=== PATIENT | female | born 1960 | race Caucasian/White ===

== ENCOUNTER 2019-07-26 08:09 | Inpatient (IN) | payer OTHER ==
[~2019-07-26] VITALS: Ht 162.6 cm; Wt 89.8 kg
--- NOTE | 2019-07-26 08:11 | NUR ---
Patient BIBA BLS, transferred to bed 7. RN evaluating patient at bedside.
[2019-07-26 08:19] VITALS: BP 93/38
[2019-07-26] MEDS ORDERED: ACETAMINOPHEN EXTRA STRENGTH 500 MG TAB PO ONE (08:25)
--- NOTE | 2019-07-26 08:30 | NUR ---
FLU SWAB COLLECTED.
--- NOTE | 2019-07-26 08:32 | NUR ---
Dr. Stewart is evaluating the patient at bedside.
--- NOTE | 2019-07-26 08:40 | NUR ---
ATTEMPTING TO GET UA SAMPLE, PT WAS INCONTINENT. CLEANED AND PLACED ON BEDPAN TO COLLECT URINE SAMPLE.
--- NOTE | 2019-07-26 08:50 | NUR ---
LAB AT BEDSIDE TO COLLECT BLOOD
--- NOTE | 2019-07-26 08:57 | NUR ---
CXR AT BEDSIDE, TO READ
[2019-07-26 09:10] LABS: BASOPHILS # (AUTO) 0.1 K/uL (0.00-0.22); BASOPHILS % (AUTO) 2.1 % (0.0-2.0); EOSINOPHILS % (AUTO) 0.2 % (0.0-4.0); HEMATOCRIT 32.5 % (36-48); HEMOGLOBIN 11.4 g/dL (12.0-16.0); LYMPHOCYTES # (AUTO) 0.3 K/uL (2.5-16.5); LYMPHOCYTES % (AUTO) 6.6 % (20.5-51.1); MEAN CORPUSCULAR HEMOGLOBIN 34 pg (27-31); MEAN CORPUSCULAR HGB CONC 35 g/dL (33-37); MEAN CORPUSCULAR VOLUME 97.1 fL (80-94); MONOCYTES # (AUTO) 0.4 K/uL (0.8-1.0); MONOCYTES % (AUTO) 7.6 % (1.7-9.3); NEUTROPHILS # (AUTO) 4.2 K/uL (1.8-7.7); NEUTROPHILS % (AUTO) 83.5 % (42.2-75.2); PLATELET COUNT (AUTO) 202 K/uL (140-450); RED BLOOD CELL COUNT(AUTO) 3.35 MIL/uL (4.20-5.40); RED CELL DISTRIBUTION WIDTH 13.6 % (11.6-13.7)
--- NOTE | 2019-07-26 09:23 | NUR ---
PATIENT STATES SHE NEEDS TO HAVE BM, USING BEDPAN
--- NOTE | 2019-07-26 09:45 | NUR ---
PT UNABLE TO VOID ON BEDPAN. STRAIGHT CATH WITH #14F CATHETER, TOLERATE WELL. 200CC CLEAR YELLOW UOP OBTAINED. SENT URINE TO LAB FOR UA/C&S
[2019-07-26 09:52] LABS: POTASSIUM 4.1 mmol/L (3.5-5.1)
[2019-07-26 09:53] LABS: ALBUMIN 3.4 g/dL (3.4-5.0); ANION GAP 11.4 (8-16); CARBON DIOXIDE 23.7 mmol/L (21-32); CREATININE 0.7 mg/dL (0.6-1.3); TOTAL BILIRUBIN 0.5 mg/dL (0.0-1.0)
[2019-07-26 10:13] LABS: APPEARANCE,URINE CLEAR (CLEAR); BILIRUBIN,URINE NEGATIVE (NEGATIVE); BLOOD, URINE TRACE-L (NEGATIVE); COLOR,URINE YELLOW (YELLOW); LEUKOCYTE ESTERASE ,URINE NEGATIVE (NEGATIVE); NITRITE, URINE NEGATIVE (NEGATIVE); UGLUCOSE NEGATIVE (NEGATIVE)
[2019-07-26] MEDS ORDERED: NACL 3% 500 ML IV ONE (11:05)
[2019-07-26] MEDS ORDERED: NACL 0.9% 1,000 ML IV ONE ×2 (11:05→21:45)
[2019-07-26] MEDS ORDERED: ONDANSETRON 4 MG/2 ML VIAL IM/IVP PRN (12:00)
[2019-07-26] MEDS ORDERED: HYDROcodone/APAP 5/325 MG 1 TAB TAB PO PRN (12:00)
[2019-07-26] MEDS ORDERED: DOCUSATE SODIUM 100 MG GELCAP PO PRN (12:00)
[2019-07-26] MEDS ORDERED: MORPHINE SULFATE 2 MG/ML SYR IVP PRN (12:00)
--- NOTE | 2019-07-26 12:30 | NUR ---
CONFRIMED TELE STATUS WITH DR MAHER. RAMO TO ADMIT TO TELE.
[2019-07-26 12:40] LABS: MAGNESIUM 1.7 mg/dL (1.8-2.4); PHOSPHORUS 2.9 mg/dL (2.5-4.9); THYROID STIMULATING HORMONE 1.7 uIU/mL (0.34-3.74)
--- NOTE | 2019-07-26 12:45 | NUR ---
PATIENT TRANSFERED VIA GURNEY WITH CARD GRINDER. PT IN NO ACUTE DISTRESS. VVS, AWAKE AND ALERT REPORT GIVEN AT BEDSIDE TO RN FOR ROOM 124A, TELEMETRY
[2019-07-26] MEDS ORDERED: MAG SULF 2000 MG/WATER PREMIX 50 ML IV ONE (12:55)
[2019-07-26 12:59] LABS: PROTHROMBIN TIME 10.8 secs (10.8-13.4)
[2019-07-26] MEDS ORDERED: MAG SULF 2000 MG/WATER PREMIX 50 ML IV SCH (13:00)
[2019-07-26 13:10] VITALS: BP 96/52
--- NOTE | 2019-07-26 13:10 | NUR ---
RECEIVED PT FROM ER NURSE, VIA GURNEY, ACCOMPANIED BY CAREGIVER ON THE BEDSIDE, PT IS ALERT, AWAKE AND ORIENTED BUT WITH MENTAL DELAY, IV LINE ON THE RT HAND G. 22 WITH NS 3% INFUSING AT 45ML/HR, FALL PRECAUTION ENFORCED AND NO SIGN OF DISTRESS NOTED, WILL CONTINUE TO MONITOR PT.
--- NOTE | 2019-07-26 13:15 | NUR ---
VITAL SIGNS TAKEN TO PT NOW AND BP IS 96/52, PULSE IS 68, TEMP IS 98.6, RESPIRATION IS 18/MIN AND 02 SATURATION IS 98% ON ROOM AIR., WILL MONITOR PT.
[2019-07-26 13:37] LABS: ANION GAP 10.2 (8-16); CARBON DIOXIDE 24.8 mmol/L (21-32); CREATININE 0.8 mg/dL (0.6-1.3)
[2019-07-26] MEDS ORDERED: MECLIZINE 25 MG TAB PO PRN (13:45)
--- NOTE | 2019-07-26 14:00 | NUR ---
SKIN ASSESSMENT IS DONE TO PT AND SKIN IS INTACT, NO WOUND NOTED, WILL MONITOR PT.
--- NOTE | 2019-07-26 14:20 | NUR ---
MRSA SWAB DONE TO PT AND SAMPLE WAS WENT TO LAB.
--- NOTE | 2019-07-26 14:40 | NUR ---
PT IS OFF THE UNIT FOR A CT OF THE HEAD AND ABDOMEN AND PELVIS WITHOUT CONTRAST.
[2019-07-26] MEDS ORDERED: BUS5 PO (14:57)
[2019-07-26] MEDS ORDERED: DIVA250T PO (14:57)
[2019-07-26] MEDS ORDERED: MAGN1TAB PO (14:57)
[2019-07-26] MEDS ORDERED: PEP15L PO (14:57)
[2019-07-26] MEDS ORDERED: SIMV20TA1 PO (14:57)
[2019-07-26] MEDS ORDERED: ARIP15TA8 PO (14:57)
[2019-07-26] MEDS ORDERED: DIVA500T1 PO (14:57)
[2019-07-26] MEDS ORDERED: CHOL200074 PO (14:57)
[2019-07-26] MEDS ORDERED: SYN.05 PO (14:57)
[2019-07-26] MEDS ORDERED: IBUP200C97 PO (14:57)
[2019-07-26] MEDS ORDERED: OLAN2.5T1 PO (14:57)
[2019-07-26] MEDS ORDERED: FERR325E14 PO (14:57)
[2019-07-26] MEDS ORDERED: COG1 PO (14:57)
[2019-07-26] MEDS ORDERED: LORA-476 PO (14:57)
[2019-07-26] MEDS ORDERED: DOCU-299 PO (14:57)
[2019-07-26] MEDS ORDERED: FENO150C3 PO (14:57)
[2019-07-26] MEDS ORDERED: BACI-352 TP (14:57)
[2019-07-26] MEDS ORDERED: LORazepam 1 MG TAB PO PRN (15:00)
--- NOTE | 2019-07-26 15:00 | NUR ---
PT IS BACK TO ROOM NOW FROM RADIOLOGY.
[2019-07-26 16:00] VITALS: BP 101/54
[2019-07-26] MEDS ORDERED: FERROUS SULFATE 325 MG TABEC PO SCH (17:00)
[2019-07-26] MEDS: NACL 0.9% 1,000 ML IV SCH (17:22)
[2019-07-26] MEDS: SENNA 8.6 MG TAB PO SCH (17:22)
[2019-07-26 17:31] LABS: ANION GAP 8.8 (8-16); CARBON DIOXIDE 23.3 mmol/L (21-32); CREATININE 0.7 mg/dL (0.6-1.3); POTASSIUM 4.1 mmol/L (3.5-5.1)
--- NOTE | 2019-07-26 18:19 | NUR ---
PT WAS STARTED ON NS 3% AT 50ML/HR NOW.
[2019-07-26] MEDS ORDERED: NACL 3% 250 ML IV SCH (18:30)
--- NOTE | 2019-07-26 19:30 | NUR ---
ENDORSED PT. TO DRIVER SALESMAN NURSE ARNALDO FOR CONTINUITY OF CARE.
--- NOTE | 2019-07-26 19:30 | NUR ---
RECIEVED PT. MENTALLY DELAYED, BUT CAN FOLLOW SIMPLE COMMANDS , CAN ADDRESS WHAT SHE WANTS SUCH "I WANT TO EAT". NID - 02 SAT WNL - RA , W/ DIAPER FULLY SOAKED W/ URINE NOTED AT THIS TIME. IV SITE INTACT AND PATENT W/ ON GOING 3% NSS X 50 CC /HR - SERUM NA LEVEL - 118. ON ASSEMBLER FAUCETS - SR .POC DISCUSSED BUT LIMITED UNDERSTANDING DUE TO MENTAL STATUS . HAD BRAIN SURGERY YRS AGO , HAD FELL HX PRIOR TO ADMISSION .WILL CLOSELY WATCH.
[2019-07-26 20:00] VITALS: BP 99/46
--- NOTE | 2019-07-26 20:00 | NUR ---
LOW BP - BUT PT APPERS COMFORTABLY RESTING ON BED , CAN FOLLOW COMMAND , O2 SAT WNL , ON CARDIAC TRACING - SR - WILL RE CHECK BP . CLOSELY WATCH. Addendum: 07/27/19 at 0251 by Genia Chin RN FULL LIQ. DIET TOLERATED FED BY LOGAN .
--- NOTE | 2019-07-26 20:45 | NUR ---
REFER TO MERA - BP 99/46 SC 72 , STILL W/ ON GOING 3% NSS X 50 CC /HR - MERA SAID RE CHECK THE BP AFTER 30 MINS - THEN UPDATE THEM. -WILL CONT TO MONITOR.
[2019-07-26] MEDS ORDERED: BENZTROPINE 1 MG TAB PO SCH (21:00)
[2019-07-26] MEDS ORDERED: DIVALPROEX 500 MG TABER PO SCH (21:00)
[2019-07-26] MEDS ORDERED: busPIRone 5 MG TAB PO SCH (21:00)
[2019-07-26] MEDS ORDERED: metroNIDAZOLE 500 MG/NS PREMIX 100 ML IV SCH (21:00)
[2019-07-26 21:26] LABS: BARBITURATE, URINE NEG. ng/ml (NEG <=200); BENZODIAZEPINE, URINE NEG. ng/mL (NEG <=200); CANNABINOID, URINE NEG. ng/mL (NEG <=50); COCAINE, URINE NEG. ng/mL (NEG <=300); OPIATE, URINE NEG. ng/mL (NEG <=2000); PHENCYCLIDINE SCREEN,URINE NEG. ng/mL (NEG <=25)
--- NOTE | 2019-07-26 22:04 | NUR ---
NSS 1 L GIVEN BOLUS ORDERED - WILL CONT. TO MONITOR. THE 3% NSS ALREADY CONSUMED INFORMED MERA - FOR REPEAT SERUM NA LEVEL ORDERED. WILL CONT. TO MONITOR.
[2019-07-26] MEDS: OLANZapine 2.5 MG TAB PO SCH (22:18)
[2019-07-26] MEDS: SIMVASTATIN 20 MG TAB PO SCH (22:18)
[2019-07-26] MEDS: DIVALPROEX 250 MG TABEC PO SCH (22:19)
[2019-07-26] MEDS: OSELTAMIVIR PHOSPHATE 75 MG CAP PO SCH (22:19)
[2019-07-26] MEDS: DOCUSATE SODIUM 100 MG GELCAP PO SCH (22:20)
[2019-07-26] MEDS: LACTULOSE 20 GM/30 ML UDC PO SCH (22:20)
[2019-07-26] MEDS: ARIPiprazole 10 MG TAB PO SCH (22:21)
[2019-07-26] MEDS: busPIRone 5 MG TAB PO SCH (22:24)
[2019-07-26 23:22] LABS: ANION GAP 10.3 (8-16); CARBON DIOXIDE 22.5 mmol/L (21-32); CREATININE 0.9 mg/dL (0.6-1.3); POTASSIUM 3.8 mmol/L (3.5-5.1)
--- NOTE | 2019-07-26 23:30 | NUR ---
BP RECHECK 90/60 - WILL CONT. TO MONITOR - FULLY SOAKED DIAPER NOTED AT THIS TIME.ON HEEL SLICKER.
[2019-07-27] VITALS: BP 100/59
--- NOTE | 2019-07-27 | NUR ---
MADE ROUNDS THE IV BOLUS CONSUMED , THE PREVOUSLY NSS ON THE BEDSIDE RE HOOKED AND REGULATE TO 70 CC/HR PREVIOUSLY ORDERED - INFORM MERA .WILL CONT. TO MONITOR.
--- NOTE | 2019-07-27 01:30 | NUR ---
MADE ROUNDS , BP97/47 - PT . CAN FOLLOW COMMANDS, O2 SAT WNL , VA 69 , W/ ANOTHER FULLY SOAKED W/URINE DIAPER NOTED , REFER TO MERA , MADE NEW ORDER AND CARIED OUT . WILL CONT. TO MONITOR. - UPDATE CHARGE ABOUT THE CONDITION OF THE PT.
[2019-07-27] MEDS ORDERED: NACL 0.9% 1,000 ML IV ONE (02:00)
[2019-07-27] MEDS: NACL 0.9% 1,000 ML IV SCH (03:29)
--- NOTE | 2019-07-27 03:30 | NUR ---
BP RE CHECK 99/60 - MERA INFORM - WILL CONT TO MONITOR.
[2019-07-27 04:00] VITALS: BP 98/60
--- NOTE | 2019-07-27 06:00 | NUR ---
MADE ROUNDS , NO S/ S OF ACUTE DISTRESS NOTED AT THIS TIME - CHICKEN BROTH AND APPLE JUICE SERVED - FED - WELL TOLERATED.
[2019-07-27] MEDS: LEVOTHYROXINE 0.025 MG TAB PO SCH (06:06)
--- NOTE | 2019-07-27 07:24 | NUR ---
RECEIVED BEDSIDE REPORT FROM NIGHTSHIFT NURSE. PT RESTING IN BED. ABLE TO MAKE NEEDS KNOWN. RESPIRATIONS EVEN AND UNLABORED WITH NO SOB OR RESPIRATORY DISTRESS. SKIN WARM AND DRY TO TOUCH. SAFETY MEASURES IN PLACE. WILL CONTINUE TO MONITOR.
--- NOTE | 2019-07-27 07:24 | NUR ---
ENDORSED - PT - AWAKE - LATEST BP 100 / 60 - STABLE . O2 SAT WNL .
[2019-07-27 08:00] VITALS: BP 107/56
--- NOTE | 2019-07-27 08:14 | NUR ---
PATIENT HAS BEEN SCREENED AND CATEGORIZED MODERATE NUTRITION RISK. PATIENT WILL BE SEEN WITHIN 3-5 DAYS OF ADMISSION. 07/29/19 07/31/[address]
[2019-07-27 08:16] LABS: BASOPHILS % (AUTO) 0.4 % (0.0-2.0); EOSINOPHILS % (AUTO) 0.1 % (0.0-4.0); HEMATOCRIT 29.7 % (36-48); HEMOGLOBIN 10.7 g/dL (12.0-16.0); LYMPHOCYTES % (AUTO) 27.6 % (20.5-51.1); MEAN CORPUSCULAR HEMOGLOBIN 35 pg (27-31); MEAN CORPUSCULAR HGB CONC 36 g/dL (33-37); MEAN CORPUSCULAR VOLUME 96.1 fL (80-94); MONOCYTES # (AUTO) 0.4 K/uL (0.8-1.0); MONOCYTES % (AUTO) 11.5 % (1.7-9.3); NEUTROPHILS # (AUTO) 2.2 K/uL (1.8-7.7); NEUTROPHILS % (AUTO) 60.4 % (42.2-75.2); PLATELET COUNT (AUTO) 186 K/uL (140-450); RED BLOOD CELL COUNT(AUTO) 3.09 MIL/uL (4.20-5.40); RED CELL DISTRIBUTION WIDTH 13.6 % (11.6-13.7); WHITE BLOOD COUNT (AUTO) 3.7 K/uL (4.8-10.8)
[2019-07-27 08:33] LABS: ANION GAP 13.6 (8-16); CARBON DIOXIDE 21.1 mmol/L (21-32); CREATININE 0.9 mg/dL (0.6-1.3); POTASSIUM 3.7 mmol/L (3.5-5.1)
[2019-07-27 08:38] LABS: MAGNESIUM 2.1 mg/dL (1.8-2.4); PHOSPHORUS 2.5 mg/dL (2.5-4.9)
[2019-07-27] MEDS: ARIPiprazole 10 MG TAB PO SCH ×2 (08:50→21:03)
[2019-07-27] MEDS: VITAMIN D 400 IU TAB PO SCH (08:51)
[2019-07-27] MEDS: LACTULOSE 20 GM/30 ML UDC PO SCH ×2 (08:51→21:03)
--- NOTE | 2019-07-27 08:51 | NUR ---
ADMINISTERED SCHED MED PRESCRIBED PER MD ORDER. PT TOLERATED WELL. MEDICATION EDUCATION PERFORMED. PT VERBALIZED UNDERSTANDING. SAFETY MEASURES IN PLACE. WILL CONTINUE TO MONITOR.
[2019-07-27] MEDS: busPIRone 5 MG TAB PO SCH ×2 (08:52→21:03)
[2019-07-27] MEDS: DIVALPROEX 250 MG TABEC PO SCH ×2 (08:52→21:04)
[2019-07-27] MEDS: DOCUSATE SODIUM 100 MG GELCAP PO SCH ×2 (08:52→21:03)
[2019-07-27] MEDS: FENOFIBRATE 48 MG TAB PO SCH (08:53)
[2019-07-27] MEDS: OSELTAMIVIR PHOSPHATE 75 MG CAP PO SCH ×2 (08:54→21:03)
[2019-07-27] MEDS: SENNA 8.6 MG TAB PO SCH ×3 (08:54→17:40)
--- NOTE | 2019-07-27 08:57 | NUR ---
ADMINISTERED SCHED MED PRESCRIBED PER MD ORDER. PT TOLERATED WELL. MEDICATION EDUCATION PERFORMED. PT VERBALIZED UNDERSTANDING. SAFETY MEASURES IN PLACE. WILL CONTINUE TO MONITOR.
[2019-07-27 09:10] LABS: FOLIC ACID 9.3 ng/mL (>3.0)
--- NOTE | 2019-07-27 10:32 | NUR ---
PT RESTING IN BED. ABLE TO MAKE NEEDS KNOWN. RESPIRATIONS EVEN AND UNLABORED WITH NO SOB OR RESPIRATORY DISTRESS. SKIN WARM AND DRY TO TOUCH. SAFETY MEASURES IN PLACE. WILL CONTINUE TO MONITOR.
[2019-07-27 10:52] LABS: CHOL/HDL RATIO 2.5 (1-4.5)
[2019-07-27 12:00] VITALS: BP 109/73
--- NOTE | 2019-07-27 12:58 | NUR ---
ADMINISTERED SCHED MED PRESCRIBED PER MD ORDER. PT TOLERATED WELL. MEDICATION EDUCATION PERFORMED. PT VERBALIZED UNDERSTANDING. SAFETY MEASURES IN PLACE. WILL CONTINUE TO MONITOR.
[2019-07-27 13:48] LABS: ANION GAP 8.8 (8-16); CARBON DIOXIDE 25.4 mmol/L (21-32); CREATININE 0.8 mg/dL (0.6-1.3); POTASSIUM 3.2 mmol/L (3.5-5.1)
--- NOTE | 2019-07-27 14:04 | NUR ---
PT SLEEPING IN BED. RESPONSIVE TO VERBAL AND TACTILE STIMULI.ABLE TO MAKE NEEDS KNOWN. RESPIRATIONS EVEN AND UNLABORED WITH NO SOB OR RESPIRATORY DISTRESS. SKIN WARM AND DRY TO TOUCH. SAFETY MEASURES IN PLACE. WILL CONTINUE TO MONITOR.
[2019-07-27 16:00] VITALS: BP 102/56
--- NOTE | 2019-07-27 17:40 | NUR ---
ADMINISTERED SCHED MED PRESCRIBED PER MD ORDER. PT TOLERATED WELL. MEDICATION EDUCATION PERFORMED. PT VERBALIZED UNDERSTANDING. SAFETY MEASURES IN PLACE. WILL CONTINUE TO MONITOR.
[2019-07-27] MEDS ORDERED: ED NON STOCK ORDER 1 EA MISC PO ONE (18:05)
--- NOTE | 2019-07-27 18:40 | NUR ---
RECEIVED CALL FROM PHARMACY. WE DO NOT HAVE THE SAMSCA 15MG HERE. [facility] WILL BE SENDING OVER THE MEDICATION WITH A CARRIER WHO WILL GIVE THE MEDICATION TO THE BOILER TENDER AND THEY WILL GIVE IT TO THE NIGHTSHIFT NURSE. THE CARRIER IS COMING FROM [facility]. WILL ENDORSE TO NIGHTSILFT. SAFETY MEASURES IN PLACE
--- NOTE | 2019-07-27 19:25 | NUR ---
ENDORSED AT BEDSIDE TO NIGHTSHIFT NURSE. PT RESTING IN BED. ABLE TO MAKE NEEDS KNOWN. RESPIRATIONS EVEN AND UNLABORED WITH NO SOB OR RESPIRATORY DISTRESS. SKIN WARM AND DRY TO TOUCH. SAFETY MEASURES IN PLACE. PT IS STABLE
--- NOTE | 2019-07-27 19:26 | NUR ---
RECEIVED REPORT FROM AM NURSE. PATIENT LYING DOWN IN BED, AAOX3, CALM, COOPERATIVE, SKIN COLOR APPROPRIATE TO ETHNICITY, WARM TO TOUCH. SKIN INTACT. RESPIRATIONS EVEN, UNLABORED, ON ROOM AIR. IV SITE INTACT, PATENT, AND INFUSING IVF PER MD ORDERS. PER AM NURSE, PATIENT HAD A LARGE BM TODAY. REVIEWED PLAN OF CARE WITH PATIENT. PATIENT VERBALIZED UNDERSTANDING. SAFETY MEASURES IN PLACE, CALL LIGHT WITHIN REACH. WILL CONTINUE TO MONITOR.
[2019-07-27 20:00] VITALS: BP 122/64
[2019-07-27] MEDS ORDERED: SAMSCA 15 MG PO SCH (21:00)
[2019-07-27] MEDS: OLANZapine 2.5 MG TAB PO SCH (21:03)
[2019-07-27] MEDS: SIMVASTATIN 20 MG TAB PO SCH (21:11)
--- NOTE | 2019-07-27 21:14 | NUR ---
PATIENT SITTING DOWN IN BED. NO DISTRESS NOTED. SCHEDULED MEDICATIONS DUE GIVEN. WILL CONTINUE TO MONITOR.
[2019-07-27] MEDS ORDERED: KCL 20 MEQ/WATER INJ PREMIX 200 ML IV ONE (21:15)
[2019-07-28] VITALS: BP 115/66
[2019-07-28] MEDS: ACETAMINOPHEN 325 MG TAB PO PRN ×2 (01:48→14:53)
--- NOTE | 2019-07-28 01:48 | NUR ---
PATIENT HAS A FEVER 101, TYLENOL GIVEN AT THIS TIME. WILL CONTINUE TO MONITOR.
--- NOTE | 2019-07-28 03:00 | NUR ---
ASSISTED UTILITY PLANT OPERATIVE IN CLEANING AND REPOSITIONING PATIENT. WILL CONTINUE TO MONITOR.
[2019-07-28 04:00] VITALS: BP 116/61
[2019-07-28] MEDS: LEVOTHYROXINE 0.025 MG TAB PO SCH (06:04)
--- NOTE | 2019-07-28 06:10 | NUR ---
PATIENT LYING DOWN IN BED SLEEPING, AROUSBLE BY VOICE. SCHEDULED MEDICATIONS DUE GIVEN. WILL CONTINUE TO MONITOR.
[2019-07-28 06:59] LABS: BASOPHILS % (AUTO) 0.3 % (0.0-2.0); EOSINOPHILS % (AUTO) 0.2 % (0.0-4.0); HEMATOCRIT 32.7 % (36-48); HEMOGLOBIN 11.7 g/dL (12.0-16.0); LYMPHOCYTES # (AUTO) 1.4 K/uL (2.5-16.5); LYMPHOCYTES % (AUTO) 32.9 % (20.5-51.1); MEAN CORPUSCULAR HEMOGLOBIN 34 pg (27-31); MEAN CORPUSCULAR HGB CONC 36 g/dL (33-37); MONOCYTES # (AUTO) 0.4 K/uL (0.8-1.0); MONOCYTES % (AUTO) 8.7 % (1.7-9.3); NEUTROPHILS # (AUTO) 2.5 K/uL (1.8-7.7); NEUTROPHILS % (AUTO) 57.9 % (42.2-75.2); PLATELET COUNT (AUTO) 189 K/uL (140-450); RED BLOOD CELL COUNT(AUTO) 3.41 MIL/uL (4.20-5.40); RED CELL DISTRIBUTION WIDTH 13.6 % (11.6-13.7); WHITE BLOOD COUNT (AUTO) 4.4 K/uL (4.8-10.8)
--- NOTE | 2019-07-28 07:10 | NUR ---
RECEIVED PT FROM CHARGE MASTER SPECIALIST NURSENORMAN, PT IS AWAKE AND LYING ON THE BED WITH SIDE RAILS UP AND CALL LIGHT WITHIN REACH, IV LINE ON THE RT WRIST G. 24 WITH IVF NS INFUSING AT 5ML/HR, SAFETY AND FALL PRECAUTION ENFORCED, BED ALARM ACTIVATED, PT ON ROOM AIR, SCD IN PLACE, PT HAS MENTAL DELAY BUT ALERT,DENIES PAIN, ON CONTACT AND DROPLET ISOLATIONS, AND NO SIGN OF DISTRESS NOTED. WILL MONITOR PT
[2019-07-28 07:34] LABS: ANION GAP 11.4 (8-16); CARBON DIOXIDE 24.9 mmol/L (21-32); CREATININE 0.9 mg/dL (0.6-1.3); POTASSIUM 4.3 mmol/L (3.5-5.1)
[2019-07-28 07:58] LABS: MAGNESIUM 1.9 mg/dL (1.8-2.4)
[2019-07-28 08:00] VITALS: BP 100/58
[2019-07-28] MEDS ORDERED: KCL 20 MEQ/WATER INJ PREMIX 200 ML IV PRN (09:00)
[2019-07-28] MEDS: SENNA 8.6 MG TAB PO SCH ×3 (09:00→17:00)
[2019-07-28] MEDS: DOCUSATE SODIUM 100 MG GELCAP PO SCH ×2 (09:00→20:31)
[2019-07-28] MEDS: LACTULOSE 20 GM/30 ML UDC PO SCH ×2 (09:00→20:30)
[2019-07-28] MEDS: DIVALPROEX 250 MG TABEC PO SCH ×2 (09:42→20:31)
[2019-07-28] MEDS: VITAMIN D 400 IU TAB PO SCH (09:44)
[2019-07-28] MEDS: ARIPiprazole 10 MG TAB PO SCH ×2 (09:45→20:29)
[2019-07-28] MEDS: OSELTAMIVIR PHOSPHATE 75 MG CAP PO SCH ×2 (09:45→20:32)
--- NOTE | 2019-07-28 09:45 | NUR ---
PT WAS GIVEN THE SCHEDULED AM MEDICATIONS, PLATELET IS 189, ASPIRATION PRECAUTION INITIATED, TOLERATED MEDICATIONS, WILL MONITOR PT.
[2019-07-28] MEDS: busPIRone 5 MG TAB PO SCH ×2 (09:46→20:30)
[2019-07-28] MEDS: FENOFIBRATE 48 MG TAB PO SCH (09:47)
--- NOTE | 2019-07-28 09:50 | NUR ---
SCHEDULED STOOL SOFTENERS IN THE AM WAS HELD DUE TO PT'S BOWEL TO BE LIQUID, DR. MEZA WAS INFORMED.
--- NOTE | 2019-07-28 09:52 | NUR ---
DR. MEZA CAME TO PT'S ROOM AND IS TALKING AND ASSESSING THE PT NOW, PT RESPONDING APPROPRIATELY.
--- NOTE | 2019-07-28 11:45 | NUR ---
PT IS SLEEPING AND RESTING NOW, VISIBLE CHEST RISE AND NO SIGN OF DISTRESS NOTED. WILL MONITOR PT.
[2019-07-28 12:00] VITALS: BP 101/62
--- NOTE | 2019-07-28 13:00 | NUR ---
SCHEDULED SENNA WAS NOT GIVEN DUE TO LIQUID BOWEL OF PT, DR. MEZA WAS INFORMED.
[2019-07-28 13:36] LABS: ANION GAP 10.9 (8-16); CARBON DIOXIDE 27.8 mmol/L (21-32); CREATININE 0.9 mg/dL (0.6-1.3); POTASSIUM 3.7 mmol/L (3.5-5.1)
--- NOTE | 2019-07-28 14:53 | NUR ---
PT C/O HEADACHE AND WAS GIVEN TYLENOL AND PT TOLERATED IT. WILL RE-ASSESS HEADACHE AND MONITOR PT.
[2019-07-28 16:00] VITALS: BP 105/61
--- NOTE | 2019-07-28 17:00 | NUR ---
SENNA WAS NOT GIVEN BECAUSE PT'S BOWEL IS LIQUID.
--- NOTE | 2019-07-28 19:00 | NUR ---
RECEIVED BEDSIDE REPORT FROM DAY SHIFT NURSE. PATIENT IS AWAKE AND COOPERATIVE. RESPIRATION EVEN UNLABORED ON ROOM AIR. NO DISTRESS NOTED. SKIN IS WARM AND DRY. IV PATENT AND INTACT. PLAN OF CARE WAS DISCUSSED. ALL SAFETY MEASURES IN PLACE. BED IS AT LOW POSITION. CALL LIGHT WITHIN REACH. WILL CONTINUE TO MONITOR.
--- NOTE | 2019-07-28 19:35 | NUR ---
ENDORSED PT TO MANAGER STEEL NURSE, TERESA, FOR CONTINUITY OF CARE.
[2019-07-28 20:00] VITALS: BP 104/63
--- NOTE | 2019-07-28 20:00 | NUR ---
INITIAL ASSESSMENT DONE. VITALS WERE TAKEN. PATIENT IS IN STABLE CONDITION. WILL CONTINUE TO MONITOR.
--- NOTE | 2019-07-28 20:29 | NUR ---
ALL SCHEDULED MEDS WERE GIVEN PER ORDER. NO ASE NOTED. WILL CONTINUE TO MONITOR.
[2019-07-28] MEDS: SIMVASTATIN 20 MG TAB PO SCH (20:31)
[2019-07-28] MEDS: OLANZapine 2.5 MG TAB PO SCH (20:32)
--- NOTE | 2019-07-28 22:00 | NUR ---
PATIENT IS SLEEPING RESPIRATION EVEN UNLABORED ON ROOM AIR. NO DISTRESS NOTED. WILL CONTINUE TO MONITOR.
[2019-07-29] VITALS: BP 101/56
--- NOTE | 2019-07-29 00:10 | NUR ---
VITALS WERE TAKEN. PATIENT IS IN STABLE CONDITION. NO DISTRESS NOTED. WILL CONTINUE TO MONITOR.
--- NOTE | 2019-07-29 00:30 | NUR ---
DR. IRBY AT BEDSIDE
--- NOTE | 2019-07-29 01:42 | NUR ---
VITALS WERE TAKEN. PATIENT IS IN STABLE CONDITION. NO DISTRESS NOTED. WILL CONTINUE TO MONITOR.
[2019-07-29 04:00] VITALS: BP 107/68
--- NOTE | 2019-07-29 04:10 | NUR ---
VITALS WERE TAKEN. PATIENT IS IN STABLE CONDITION. NO DISTRESS NOTED. WILL CONTINUE TO MONITOR.
[2019-07-29] MEDS: LEVOTHYROXINE 0.025 MG TAB PO SCH (06:21)
[2019-07-29 06:59] LABS: BASOPHILS % (AUTO) 0.5 % (0.0-2.0); EOSINOPHILS # (AUTO) 0.1 K/uL (0-0.4); EOSINOPHILS % (AUTO) 1.1 % (0.0-4.0); HEMATOCRIT 33.5 % (36-48); HEMOGLOBIN 11.9 g/dL (12.0-16.0); LYMPHOCYTES # (AUTO) 1.5 K/uL (2.5-16.5); LYMPHOCYTES % (AUTO) 26.7 % (20.5-51.1); MEAN CORPUSCULAR HEMOGLOBIN 34 pg (27-31); MEAN CORPUSCULAR HGB CONC 36 g/dL (33-37); MEAN CORPUSCULAR VOLUME 96.5 fL (80-94); MONOCYTES # (AUTO) 0.5 K/uL (0.8-1.0); NEUTROPHILS # (AUTO) 3.7 K/uL (1.8-7.7); NEUTROPHILS % (AUTO) 63.7 % (42.2-75.2); PLATELET COUNT (AUTO) 211 K/uL (140-450); RED BLOOD CELL COUNT(AUTO) 3.47 MIL/uL (4.20-5.40); RED CELL DISTRIBUTION WIDTH 13.4 % (11.6-13.7); WHITE BLOOD COUNT (AUTO) 5.8 K/uL (4.8-10.8)
[2019-07-29 07:06] LABS: ANION GAP 10.6 (8-16); CARBON DIOXIDE 29.3 mmol/L (21-32); CREATININE 0.8 mg/dL (0.6-1.3); POTASSIUM 3.9 mmol/L (3.5-5.1)
[2019-07-29 07:11] LABS: MAGNESIUM 1.8 mg/dL (1.8-2.4); PHOSPHORUS 2.7 mg/dL (2.5-4.9)
--- NOTE | 2019-07-29 07:15 | NUR ---
ENDORSED PATIENT TO DAY SHIFT NURSE. PATIENT IS IN STABLE CONDITION
--- NOTE | 2019-07-29 07:20 | NUR ---
RECEIVED PT FROM COMPREHENSIVE OPHTHALMOLOGIST NURSE, TERESA, PT IS AWAKE AND LYING ON THE BED WITH SIDE RAILS UP AND CALL LIGHT WITHIN REACH, IV LINE NOTED ON THE RT WRIST G. 24 WITH IVF ON TKO, SCD IN PLACE, ON ROOM AIR, NO SIGN OF DISTRESS AND WILL CONTINUE TO MONITOR PT.
[2019-07-29 08:00] VITALS: BP 106/69
[2019-07-29] MEDS: FUROSEMIDE 20 MG TAB PO SCH (09:00)
[2019-07-29] MEDS: OSELTAMIVIR PHOSPHATE 75 MG CAP PO SCH ×2 (09:21→20:27)
[2019-07-29] MEDS: FENOFIBRATE 48 MG TAB PO SCH (09:21)
[2019-07-29] MEDS: DIVALPROEX 250 MG TABEC PO SCH ×2 (09:22→20:29)
[2019-07-29] MEDS: VITAMIN D 400 IU TAB PO SCH (09:23)
[2019-07-29] MEDS: DOCUSATE SODIUM 100 MG GELCAP PO SCH ×2 (09:23→20:28)
[2019-07-29] MEDS: SENNA 8.6 MG TAB PO SCH ×3 (09:24→17:59)
[2019-07-29] MEDS: busPIRone 5 MG TAB PO SCH ×2 (09:24→20:28)
[2019-07-29] MEDS: ARIPiprazole 10 MG TAB PO SCH ×2 (09:26→20:27)
[2019-07-29] MEDS: LACTULOSE 20 GM/30 ML UDC PO SCH ×2 (09:26→20:30)
--- NOTE | 2019-07-29 09:36 | NUR ---
PT WAS GIVEN THE SCHEDULED AM MEDICATIONS, PARAMETER CHECKED, BP IS 110/59, O2 SATURATION IS 97%, PULSE IS 83, PLATELET IS 211, PT TOLERATED AND WILL CONTINUE TO MONITOR PT.
[2019-07-29 12:00] VITALS: BP 102/51
--- NOTE | 2019-07-29 14:22 | NUR ---
PT WAS GIVEN SENNA NOW, TOLERATED AND WILL MONITOR PT.
[2019-07-29 16:00] VITALS: BP 104/63
--- NOTE | 2019-07-29 19:25 | NUR ---
ENDORSED PT TO LEATHER CLEANER NURSETERESA FOR CONTINUITY OF CARE.
[2019-07-29 19:53] VITALS: BP 110/74
--- NOTE | 2019-07-29 20:05 | NUR ---
INITIAL ASSESSMENT DONE. VITALS WERE TAKEN. PATIENT IS IN STABLE CONDITION. NO DISTRESS NOTED. WILL CONTINUE TO MONITOR.
--- NOTE | 2019-07-29 20:27 | NUR ---
ALL SCHEDULED MEDS WERE GIVEN PER ORDER. NO ASE NOTED. WILL CONTINUE TO MONITOR.
[2019-07-29] MEDS: OLANZapine 2.5 MG TAB PO SCH (20:29)
[2019-07-29] MEDS: SIMVASTATIN 20 MG TAB PO SCH (20:30)
--- NOTE | 2019-07-29 21:36 | NUR ---
CHECKED PATIENT. PATIENT WATCHING TV RESPIRATION EVEN UNLABORED ON ROOM AIR. NO DISTRESS NOTED. WILL CONTINUE TO MONITOR
[2019-07-30] VITALS: BP 132/76
--- NOTE | 2019-07-30 00:05 | NUR ---
VITALS WERE TAKEN. PATIENT IS IN STABLE CONDITION. NO DISTRESS NOTED. WILL CONTINUE TO MONITOR.
--- NOTE | 2019-07-30 02:20 | NUR ---
CHECKED PATIENT. PATIENT SLEEPING RESPIRATION EVEN UNLABORED ON ROOM AIR. NO DISTRESS NOTED. WILL CONTINUE TO MONITOR,
[2019-07-30 04:00] VITALS: BP 102/63
--- NOTE | 2019-07-30 04:00 | NUR ---
VITALS WERE TAKEN. PATIENT IS IN STABLE CONDITION. WILL CONTINUE TO MONITOR.
[2019-07-30] MEDS: LEVOTHYROXINE 0.025 MG TAB PO SCH (05:39)
[2019-07-30 06:16] LABS: ANION GAP 10.2 (8-16); CARBON DIOXIDE 28.6 mmol/L (21-32); CREATININE 0.9 mg/dL (0.6-1.3); POTASSIUM 3.8 mmol/L (3.5-5.1)
[2019-07-30 06:49] LABS: MAGNESIUM 1.8 mg/dL (1.8-2.4); PHOSPHORUS 4.6 mg/dL (2.5-4.9)
[2019-07-30 06:59] LABS: BASOPHILS % (AUTO) 0.9 % (0.0-2.0); EOSINOPHILS # (AUTO) 0.1 K/uL (0-0.4); EOSINOPHILS % (AUTO) 2.4 % (0.0-4.0); HEMATOCRIT 34.1 % (36-48); LYMPHOCYTES # (AUTO) 1.6 K/uL (2.5-16.5); MEAN CORPUSCULAR HEMOGLOBIN 35 pg (27-31); MEAN CORPUSCULAR HGB CONC 35 g/dL (33-37); MEAN CORPUSCULAR VOLUME 98.4 fL (80-94); MONOCYTES # (AUTO) 0.6 K/uL (0.8-1.0); MONOCYTES % (AUTO) 11.8 % (1.7-9.3); NEUTROPHILS # (AUTO) 2.8 K/uL (1.8-7.7); NEUTROPHILS % (AUTO) 53.9 % (42.2-75.2); PLATELET COUNT (AUTO) 187 K/uL (140-450); RED BLOOD CELL COUNT(AUTO) 3.46 MIL/uL (4.20-5.40); RED CELL DISTRIBUTION WIDTH 13.6 % (11.6-13.7); WHITE BLOOD COUNT (AUTO) 5.2 K/uL (4.8-10.8)
--- NOTE | 2019-07-30 07:09 | NUR ---
ENDORSED PATIENT TO DAY SHIFT NURSE. PATIENT IS IN STABLE CONDITION.
--- NOTE | 2019-07-30 07:10 | NUR ---
RECEIVED PATIENT FROM REAL ESTATE SALESPERSON NURSE FOR CONTINUITY OF CARE. PATIENT IS SLEEPING AT THIS TIME. RESPIRATIONS EVEN AND UNLABORED, ROOM AIR. VISIBLE CHEST RISE. ON TELE MONITORING. ABDOMEN SOFT, ROUND, AND NONTENDER. SKIN WARM, DRY, AND INTACT. IV IN THE RIGHT WRIST 24G, SALINE LOCK. IV PATENT AND FLUSHED WELL. PATIENT IS BEDBOUND. BED IN LOW POSITION. FALL, DROPLET, AND CONTACT PRECAUTIONS. WILL CONTINUE TO MONITOR.
--- NOTE | 2019-07-30 07:38 | NUR ---
GIVEN MORNING MEDICATIONS PO SCHEDULED. HEPARIN IN THE LEFT UPPER ARM. PLATELET IS 187. EXPLAINED TO PATIENT MED AND SIDE EFFECTS. PATIENT VERBALIZED UNDERSTANDING. BED IN LOW POSITION. CALL LIGHT IS WITHIN REACH. WILL CONTINUE TO MONITOR
[2019-07-30 08:00] VITALS: BP 115/75
[2019-07-30] MEDS: ARIPiprazole 10 MG TAB PO SCH (08:34)
[2019-07-30] MEDS: DOCUSATE SODIUM 100 MG GELCAP PO SCH (08:34)
[2019-07-30] MEDS: DIVALPROEX 250 MG TABEC PO SCH (08:36)
[2019-07-30] MEDS: OSELTAMIVIR PHOSPHATE 75 MG CAP PO SCH (08:36)
[2019-07-30] MEDS: FENOFIBRATE 48 MG TAB PO SCH (08:37)
[2019-07-30] MEDS: FUROSEMIDE 20 MG TAB PO SCH (08:37)
[2019-07-30] MEDS: busPIRone 5 MG TAB PO SCH (08:38)
[2019-07-30] MEDS: SENNA 8.6 MG TAB PO SCH ×2 (08:38→13:00)
[2019-07-30] MEDS: LACTULOSE 20 GM/30 ML UDC PO SCH (08:39)
[2019-07-30] MEDS: VITAMIN D 400 IU TAB PO SCH (08:39)
--- NOTE | 2019-07-30 10:29 | NUR ---
DC PLANNING: PT HAS A DC ORDER TO GO TO SNF FOR PHYSICAL THERAPY , PER DR MEZA THE [facility] WON'T ALLOW WALKER PLUS NO HOME HEALTH PERMITTED. PT IS ACCEPTED AT [facility] FOR FURTHER PHYSICAL THERAPY. PER FLASH AT [facility] PT CAN GO TO ROOM 100A # TO GIVE REPORT [phone]. CALLED [facility] FOR AUTH FOR TRANSPORT SPOKE WITH PINEDA , PROVIDE AUTH # [id number] ARRANGED TRANSPORT WITH [facility] [phone] SPOKE WITH GALEN, HIGH SCHOOL ASSISTANT FOOTBALL COACH TIME BETWEEN 1-2 PM NOTIFIED BOWEN CHARGE NURSE.
[2019-07-30 10:56] VITALS: BP 115/75
[2019-07-30 12:00] VITALS: BP 117/69
--- NOTE | 2019-07-30 12:00 | NUR ---
VITAL SIGNS CHECK. PATIENT DENIES PAIN. WILL CONTINUE TO MONITOR
--- NOTE | 2019-07-30 12:22 | NUR ---
PATIENT IS EATING LUNCH AT THIS MOMENT. NO SIGNS OF DISTRESS NOTED.BED IN LOW POSITION. CALL LIGHT IS WITHIN REACH. WILL CONTINUE TO MONITOR
--- NOTE | 2019-07-30 12:29 | NUR ---
GIVEN REPORT TO NICHOLAS SANABRIA FROM [facility]. DISCUSSED PATIENT'S LABS, VITAL SIGNS, CARE PLAN, REASON FOR TRANSFER. NO FURTHER QUESTIONS.
--- NOTE | 2019-07-30 13:03 | NUR ---
HELD SENNA BECAUSE PATIENT IS HAVING DIARRHEA. BED IN LOW POSITION. CALL LIGHT IS WITHIN REACH. WILL CONTINUE TO MONITOR
--- NOTE | 2019-07-30 14:32 | NUR ---
PATIENT IS SLEEPING AT THIS TIME. NO SIGNS OF DISTRESS NOTED. BED IN LOW POSITION. CALL LIGHT IS WITHIN REACH. WILL CONTINUE TO MONITOR
--- NOTE | 2019-07-30 15:00 | NUR ---
GIVEN DISCHARGED INSTRUCTIONS. EXPLAINED THAT DR. HAYES WILL BE THE PATIENT'S DOCTOR AT [facility]. TO CONTINUE MEDICATIONS. PATIENT REFUSED FLU AND PNA VACCINES. PATIENT SIGNED DISCHARGE PAPERWORK. NO FURTHER QUESTIONS
--- NOTE | 2019-07-30 15:25 | NUR ---
DISCONTINUED IV AND REMOVED ID BAND. MINIMAL BLEEDING.
--- NOTE | 2019-07-30 15:28 | NUR ---
TRANSPORT ENGINEERING INSTRUCTOR PERSONNEL IS AT BEDSIDE
--- NOTE | 2019-07-30 15:30 | NUR ---
DISCHARGED PATIENT VIA GURNEY ACCOMPANIED BY TRANSPORT PERSONNEL. DENIES PAIN. NO SOB. PATIENT IS IN STABLE CONDITION
== END 2019-07-30 15:30 | DRG 641 ==
LOC: MED 08:09 → MTU 11:56
PROVIDERS: ADMIT General Practice; ATTEND General Practice
DX: E87.1 Hypo-osmolality and hyponatremia (principal); R65.10 Systemic inflammatory response syndrome (SIRS) of non-infectious origin without acute organ dysfunction; J10.1 Influenza due to other identified influenza virus with other respiratory manifestations; K52.9 Noninfective gastroenteritis and colitis, unspecified; E86.1 Hypovolemia; F20.9 Schizophrenia, unspecified; D63.8 Anemia in other chronic diseases classified elsewhere; E03.9 Hypothyroidism, unspecified; R74.0 Nonspecific elevation of levels of transaminase and lactic acid dehydrogenase [LDH]; E83.42 Hypomagnesemia; K80.50 Calculus of bile duct without cholangitis or cholecystitis without obstruction; F41.9 Anxiety disorder, unspecified; F79 Unspecified intellectual disabilities; G80.9 Cerebral palsy, unspecified; K59.00 Constipation, unspecified; K83.8 Other specified diseases of biliary tract; Z90.49 Acquired absence of other specified parts of digestive tract
CPT/HCPCS: 36415; 70450; 71045; 74018; 76705; 80048; 80053; 80305; 81003; 82140; 82272; 82607; 82728; 82746; 82948; 83036; 83540; 83605; 83690; 83735; 83880; 83930; 83935; 84100; 84300; 84443; 85025; 85045; 85610; 85730; 87040; 87081; 87804; 96360; 97110; 97116; 97161-GP; 97530; 99291; C1758; J1644; J3475; J3480; J3490; J7030; Q0092

== ENCOUNTER 2021-02-11 18:45 | Emergency (ER) | payer OTHER ==
[~2021-02-11] VITALS: Ht 162.6 cm; Wt 63.7 kg
[~2021-02-11 18:45] MED LIST: ARIP15TA PO; BACI-352 TP; BUS5 PO; CHOL200074 PO; COG1 PO; DIVA250T PO; DIVA500T1 PO; DOCU-299 PO; FENO150C3 PO; FERR325E14 PO; IBUP200C97 PO; LORA-476 PO; MAGN1TAB PO; OLAN2.5T1 PO; PEP15L PO; SIMV20TA1 PO; SYN.05 PO
[2021-02-11 18:55] VITALS: BP 136/78
--- NOTE | 2021-02-11 18:59 | NUR ---
Feng gomez in ED - 02/11/21 at [address] CONLEY AT BEDSIDE FOR FURTHER EVALUATION.
--- NOTE | 2021-02-11 19:01 | NUR ---
PT TAKEN TO ER BED 1 WITH CAREGIVER.
--- NOTE | 2021-02-11 19:02 | NUR ---
60YO F BIB CAREGIVER FROM [facility] C/O RIGHT ANKLE PAIN AND SWELLING SINCE THIS AFTERNOON. CAREGIVER FOUND PT ON AL FOURS IN THE RESTROOM. GIVEN 400MG IBUPROFEN 2HRS AGO. PMH: MILD INTELLECTUAL DISABILITY, IMPULSE CONTROL D/O, SEIZURE, HYPOTHYROID MEDS: SEE LIST NKA
--- NOTE | 2021-02-11 19:02 | NUR ---
DR. CONLEY AT PT BEDSIDE FOR FURTHER EVALUATION.
[2021-02-11] MEDS ORDERED: ACETAMINOPHEN 325 MG TAB PO ONE (19:40)
--- NOTE | 2021-02-11 20:04 | NUR ---
HEAD PAPER TESTER AT PT BEDSIDE.
--- NOTE | 2021-02-11 20:24 | NUR ---
PROVIDED PT WITH CRACKERS AND JUICE, HOB ELEVATED FOR COMFORT, WILL CONTINUE TO MONITOR.
--- NOTE | 2021-02-11 20:30 | NUR ---
DR. CONLEY WITH PT FOR FURTHER REEVALUATION.
[2021-02-11] MEDS ORDERED: IBUP-1842 PO (20:50)
--- NOTE | 2021-02-11 20:54 | NUR ---
SPOKE WITH PT CAREGIVER ELLIS FOR PT TRANSPORTATION HOME. ETA 10MINUTES.
[2021-02-11 21:15] VITALS: BP 136/78
--- NOTE | 2021-02-11 21:15 | NUR ---
Patient discharged with v/s stable. Written and verbal after care instructions given ANKLE SPRAIN and explained. Patient alert, oriented and verbalized understanding of instructions. Wheel Chair Assisted with to car. All questions addressed prior to discharge. ID band removed. Patient advised to follow up with PMD. Rx of MOTRIN given. Patient educated on indication of medication including possible reaction and side effects. Opportunity to ask questions provided and answered.
[2021-02-18] MEDS ORDERED: SODI100076 PO (13:17)
[2021-02-18] MEDS ORDERED: PANT40EC56 PO (13:17)
== END 2021-02-11 21:15 | disposition home or self-care (01) ==
LOC: MED 18:45
DX: S93.401A Sprain of unspecified ligament of right ankle, initial encounter (principal); E11.9 Type 2 diabetes mellitus without complications; F03.90 Unspecified dementia, unspecified severity, without behavioral disturbance, psychotic disturbance, mood disturbance, and anxiety; Z79.899 Other long term (current) drug therapy; W19.XXXA Unspecified fall, initial encounter; Y93.89 Activity, other specified; Y92.89 Other specified places as the place of occurrence of the external cause; Y99.8 Other external cause status
CPT/HCPCS: 73610; 99283; Q0092

== ENCOUNTER 2021-03-11 11:01 | Inpatient (IN) | payer OTHER ==
[~2021-03-11] VITALS: Ht 165.1 cm; Wt 65.3 kg
[~2021-03-11 11:01] MED LIST changes: -BACI-352 TP; -BUS5 PO; -CHOL200074 PO; -DIVA250T PO; +DIVA500E2 PO; -DIVA500T1 PO; +FENO145T PO; -FENO150C3 PO; -FERR325E14 PO; +IBUP-1842 PO; -IBUP200C97 PO; -MAGN1TAB PO; +MULT-2086 PO; -OLAN2.5T1 PO; +PANT40EC56 PO; -PEP15L PO; +SODI100076 PO
[2021-03-11 11:12] VITALS: BP 137/65
--- NOTE | 2021-03-11 11:18 | NUR ---
PT AMBULATED TO BED 7
--- NOTE | 2021-03-11 11:29 | NUR ---
60/F BIB WINDOWS SYSTEMS ADMINISTRATOR STATING PATIENT HAS BEEN INCREASINGLY ALTERED AND CONFUSED SINCE LAST NIGHT. STATING SHE NEEDS MORE HELP WITH DAILY ACTIVITIES MORE THAN USUAL. DENIES CP, SOB, FEVER, CHILLS. CAREGIVER STATED LAST NIGHT "PATIENT WAS UNABLE TO SHOWER ON HER OWN AND EAT ON HER OWN." PER CAREGIVER PT BASELINE IS INDEPENDENT AND A&OX3. UPON ASSESSMENT PATIENT IS A&OX3, AMBULATORY, AND ABLE TO FOLLOW BASIC COMMANDS. MEDHX: MILD DEVELOPMENTALLY DISABLED, EPILEPSY, IMPULSE CONTROL DISORDER ALLERGIES: DENIES
[2021-03-11] MEDS ORDERED: NACL 0.9% 500 ML IV ONE (11:50)
--- NOTE | 2021-03-11 11:55 | NUR ---
PER ERMD 12 LEAD WAS DONE ON PT AND CAME BACK NSR AT 59 HR.
--- NOTE | 2021-03-11 12:00 | NUR ---
20 G IV ESTABLISHED IN R . LAB WORK COLLECTED FROM IV AND HANDED TO DOCUMENTATION MANAGER OLLIE
--- NOTE | 2021-03-11 12:08 | NUR ---
XRAY BEDSIDE WITH PATIENT
--- NOTE | 2021-03-11 12:09 | NUR ---
URINE COLLECTED AND HANDED TO DOLPHIN RESEARCHER OLLIE
[2021-03-11 12:27] LABS: BASOPHILS % (AUTO) 0.4 % (0.0-2.0); EOSINOPHILS # (AUTO) 0.1 K/uL (0-0.4); EOSINOPHILS % (AUTO) 2.4 % (0.0-4.0); HEMATOCRIT 29.4 % (36-48); HEMOGLOBIN 10.3 g/dL (12.0-16.0); LYMPHOCYTES % (AUTO) 44.2 % (20.5-51.1); MEAN CORPUSCULAR HEMOGLOBIN 35 pg (27-31); MEAN CORPUSCULAR HGB CONC 35 g/dL (33-37); MEAN CORPUSCULAR VOLUME 99.5 fL (80-94); MONOCYTES # (AUTO) 0.4 K/uL (0.8-1.0); MONOCYTES % (AUTO) 8.3 % (1.7-9.3); NEUTROPHILS % (AUTO) 44.7 % (42.2-75.2); PLATELET COUNT (AUTO) 283 K/uL (140-450); RED BLOOD CELL COUNT(AUTO) 2.96 MIL/uL (4.20-5.40); RED CELL DISTRIBUTION WIDTH 13.4 % (11.6-13.7); WHITE BLOOD COUNT (AUTO) 4.4 K/uL (4.8-10.8)
[2021-03-11 12:32] LABS: APPEARANCE,URINE CLEAR (CLEAR); BILIRUBIN,URINE NEGATIVE (NEGATIVE); BLOOD, URINE TRACE-I (NEGATIVE); COLOR,URINE YELLOW (YELLOW); LEUKOCYTE ESTERASE ,URINE NEGATIVE (NEGATIVE); NITRITE, URINE NEGATIVE (NEGATIVE); UGLUCOSE NEGATIVE (NEGATIVE)
[2021-03-11 12:39] LABS: BARBITURATE, URINE NEGATIVE ng/ml (NEG <=200); BENZODIAZEPINE, URINE NEGATIVE ng/mL (NEG <=200); CANNABINOID, URINE NEGATIVE ng/mL (NEG <=50); COCAINE, URINE NEGATIVE ng/mL (NEG <=300); OPIATE, URINE NEGATIVE ng/mL (NEG <=2000); PHENCYCLIDINE SCREEN,URINE NEGATIVE ng/mL (NEG <=25)
[2021-03-11 12:58] LABS: ALBUMIN 3.7 g/dL (3.4-5.0); ANION GAP 11.8 (8-16); ASPARTATE AMINOTRANSFERASE 25 U/L (15-37); CHLORIDE 91 mmol/L (98-107); CREATININE 0.6 mg/dL (0.6-1.3); FREE T4 (FREE THYROXINE) 0.93 ng/dL (0.76-1.46); GFR ARICAN-AMERICAN 132 mL/min (>90); GLUCOSE 93 mg/dL (74-106); POTASSIUM 3.8 mmol/L (3.5-5.1); SODIUM SERUM 125 mmol/L (136-145); THYROID STIMULATING HORMONE 0.94 uIU/mL (0.34-3.74); TOTAL BILIRUBIN 0.5 mg/dL (0.0-1.0); UREA NITROGEN, BLOOD 10 mg/dL (7-18)
[2021-03-11] MEDS ORDERED: LACTULOSE 20 GM/30 ML UDC PO ONE (13:25)
[2021-03-11 13:32] LABS: SALICYLATE < 2.8 mg/dL (2.8-20.0)
[2021-03-11 13:35] LABS: ACETAMINOPHEN < 0.5 ug/ml (10-30)
--- NOTE | 2021-03-11 14:03 | NUR ---
PT AMBULATED TO RESTROOM AND BACK TO ROOM 7 WITH CAREGIVER
[2021-03-11] MEDS ORDERED: ACETAMINOPHEN 325 MG TAB PO PRN (14:10)
[2021-03-11] MEDS: NACL 0.9% 1,000 ML IV SCH (14:10)
[2021-03-11] MEDS ORDERED: SODIUM PHOS / POTASSIUM PHOS 1 PKT PDR PO PRN (14:10)
[2021-03-11] MEDS ORDERED: LORazepam 2 MG/ML VIAL IM/IVP PRN (14:10)
[2021-03-11] MEDS ORDERED: DOCUSATE SODIUM 100 MG GELCAP PO PRN (14:10)
[2021-03-11] MEDS ORDERED: HYDROcodone/APAP 5/325 MG 1 TAB TAB PO PRN (14:10)
[2021-03-11] MEDS ORDERED: POTASSIUM CHLORIDE 10 MEQ TABER PO PRN (14:10)
[2021-03-11] MEDS ORDERED: MORPHINE SULFATE 2 MG/ML SYR IVP PRN (14:10)
[2021-03-11] MEDS ORDERED: ONDANSETRON 4 MG/2 ML VIAL IVP PRN (14:10)
[2021-03-11] MEDS ORDERED: LORazepam 1 MG TAB PO PRN (14:10)
[2021-03-11] MEDS ORDERED: ZOLPIDEM 5 MG TAB PO PRN (14:10)
[2021-03-11] MEDS ORDERED: MAG SULF 2000 MG/WATER PREMIX 50 ML IV PRN (14:10)
[2021-03-11] MEDS ORDERED: IBUPROFEN 400 MG TAB PO PRN (14:10)
--- NOTE | 2021-03-11 14:17 | NUR ---
PT ADMITTED UNDER DR. RODRÍGUEZ AND IS TELE HOLD IN ED BED 7
[2021-03-11 14:45] LABS: CHOL/HDL RATIO 1.9 (1-4.5); FREE T4 (FREE THYROXINE) 0.92 ng/dL (0.76-1.46); THYROID STIMULATING HORMONE 0.93 uIU/mL (0.34-3.74)
--- NOTE | 2021-03-11 14:50 | NUR ---
PT TAKEN TO CT SCAN VIA JEAN CLAUDE
--- NOTE | 2021-03-11 15:01 | NUR ---
PT RETURNED TO BED [address] V[address] [facility]
--- NOTE | 2021-03-11 15:06 | NUR ---
DR. RODRÍGUEZ BEDSIDE SPEAKING WITH PATIENT
[2021-03-11 15:09] LABS: PROTHROMBIN TIME 10.9 secs (10.8-13.4)
--- NOTE | 2021-03-11 15:15 | NUR ---
RECEIVED REPORT FROM ER NURSE. ADMITTED 60 Y/O FEMALE FROM A [facility] WITH A CC OF ALOC. ADMITTING DX OF ALTERED MENTAL STATUS. WITH HX OF DEVELOPMENTAL DISABILITY, EPILEPSY, AND IMPULSE CONTROL DISORDER. PT IS AOX2-3 WITH DEVELOPMENTAL DELAY. ABLE TO FOLLOW COMMANDS, NO C/O PAIN, NO SOB ON ROOM AIR. AMBULATORY WITH ASSIST, B/B CONTINENT. WITH IV ON RAC 20G RUNNING NS AT 100CC/HR. SAFETY AND SEIZURE PRECAUTIONS IN PLACE. STANDARD ISOLATION. CALL LIGHT WITHIN REACH. WILL CONTINUE TO MONITOR
--- NOTE | 2021-03-11 15:25 | NUR ---
Patient will be admitted to care of DR. RODRÍGUEZ. Admited to TELE. Will go to room 110B. Belongings list completed. Report to JOSE FELDER. PT TAKEN VIA JEAN CLAUDE WITH NIDIA ESPOSITO. PATIENT STABLE UPON TRANSFER
[2021-03-11 16:09] VITALS: BP 122/71
--- NOTE | 2021-03-11 17:39 | NUR ---
PT IN BED. ASSISTED TO BATHROOM, NO C/O PAIN, NO SOB
--- NOTE | 2021-03-11 18:26 | NUR ---
PT SITTING IN BED, EATING DINNER
[2021-03-11] MEDS: DIVALPROEX 500 MG TABEC PO SCH (21:00)
[2021-03-11] MEDS: ARIPiprazole 10 MG TAB PO SCH (21:00)
[2021-03-11] MEDS ORDERED: ARIPIPRAZOLE 15 MG PO SCH (21:00)
[2021-03-11] MEDS: SIMVASTATIN 20 MG TAB PO SCH (21:00)
[2021-03-11] MEDS: DOCUSATE SODIUM 100 MG GELCAP PO SCH (21:00)
[2021-03-11] MEDS: BENZTROPINE 1 MG TAB PO SCH (21:00)
[2021-03-12] MEDS: NACL 0.9% 1,000 ML IV SCH (00:52)
[2021-03-12] MEDS: LEVOTHYROXINE 0.025 MG TAB PO SCH (06:56)
[2021-03-12 07:15] LABS: BASOPHILS % (AUTO) 0.9 % (0.0-2.0); EOSINOPHILS # (AUTO) 0.1 K/uL (0-0.4); EOSINOPHILS % (AUTO) 2.7 % (0.0-4.0); HEMATOCRIT 28.3 % (36-48); LYMPHOCYTES # (AUTO) 2.6 K/uL (2.5-16.5); LYMPHOCYTES % (AUTO) 51.3 % (20.5-51.1); MEAN CORPUSCULAR HEMOGLOBIN 35 pg (27-31); MEAN CORPUSCULAR HGB CONC 35 g/dL (33-37); MEAN CORPUSCULAR VOLUME 97.9 fL (80-94); MONOCYTES # (AUTO) 0.4 K/uL (0.8-1.0); MONOCYTES % (AUTO) 8.3 % (1.7-9.3); NEUTROPHILS # (AUTO) 1.9 K/uL (1.8-7.7); NEUTROPHILS % (AUTO) 36.8 % (42.2-75.2); PLATELET COUNT (AUTO) 249 K/uL (140-450); RED BLOOD CELL COUNT(AUTO) 2.89 MIL/uL (4.20-5.40); RED CELL DISTRIBUTION WIDTH 13.7 % (11.6-13.7); WHITE BLOOD COUNT (AUTO) 5.1 K/uL (4.8-10.8)
--- NOTE | 2021-03-12 07:30 | NUR ---
RECEIVED REPORT FROM AGRICULTURAL SERVICE TECHNICIAN NURSE FOR CONTINUITY OF CARE. PT IS AOX2, ABLE TO MAKE NEEDS KNOWN. WITH DEVELOPMENTAL DELAY. ABLE TO FOLLOW COMMANDS, NO C/O PAIN, NO SOB ON ROOM AIR. AMBULATORY WITH ASSIST, B/B CONTINENT. WITH IV ON RAC 20G RUNNING NS AT 100CC/HR. PLAN OF CARE DISCUSSED. SAFETY AND SEIZURE PRECAUTIONS IN PLACE. STANDARD ISOLATION. CALL LIGHT WITHIN REACH. WILL CONTINUE TO MONITOR
[2021-03-12 08:00] VITALS: BP 125/60
[2021-03-12] MEDS: DIVALPROEX 500 MG TABEC PO SCH ×2 (08:48→20:43)
[2021-03-12] MEDS: BENZTROPINE 1 MG TAB PO SCH ×2 (08:49→20:43)
[2021-03-12] MEDS: MULTIVITAMIN/MINERALS 1 TAB PO SCH (08:49)
[2021-03-12] MEDS: ARIPiprazole 10 MG TAB PO SCH ×2 (08:50→20:42)
[2021-03-12] MEDS: FENOFIBRATE 48 MG TAB PO SCH (08:51)
[2021-03-12] MEDS: LACTULOSE 20 GM/30 ML UDC PO SCH ×2 (08:51→20:43)
[2021-03-12] MEDS: DOCUSATE SODIUM 100 MG GELCAP PO SCH (08:53)
[2021-03-12] MEDS ORDERED: SODIUM CHLORIDE 1 GM TAB PO SCH (09:00)
[2021-03-12] MEDS ORDERED: NON-FORMULARY ITEM (Fenofibrate Nanocrystallized* (Tricor*) 145 MG) PO SCH (09:00)
[2021-03-12] MEDS ORDERED: PANTOPRAZOLE 40 MG TABEC PO SCH (09:00)
--- NOTE | 2021-03-12 09:17 | NUR ---
PATIENT HAS BEEN SCREENED AND CATEGORIZED MODERATE NUTRITION RISK. PATIENT WILL BE SEEN WITHIN 3-5 DAYS OF ADMISSION. 03/14/21 03/16/[address]
--- NOTE | 2021-03-12 09:45 | NUR ---
ALL SCHEDULED MEDS GIVEN. PT IS STABLE.NO DISTRESS NOTED. WILL CONTINUE TO MONITOR.
[2021-03-12 09:48] LABS: ANION GAP 16.3 (8-16); CARBON DIOXIDE 19.7 mmol/L (21-32); CREATININE 0.5 mg/dL (0.6-1.3)
[2021-03-12 09:54] LABS: ALBUMIN 3.6 g/dL (3.4-5.0); TOTAL BILIRUBIN 0.4 mg/dL (0.0-1.0)
[2021-03-12] MEDS ORDERED: VANCOMYCIN 750 MG in DEXTROSE 5% 250 ML IV SCH (10:00)
--- NOTE | 2021-03-12 10:45 | NUR ---
DR. BARGER AT PATIENT'S BEDSIDE SPEAKING WITH PATIENT.
--- NOTE | 2021-03-12 11:30 | NUR ---
CHECKED ON PATIENT. PATIENT IS STABLE. NO DISTRESS NOTED. WILL CONTINUE TO MONITOR.
[2021-03-12 12:00] VITALS: BP 121/62
--- NOTE | 2021-03-12 13:50 | NUR ---
CHECKED ON PATIENT. PATIENT IS STABLE. NO DISTRESS NOTED. WILL CONTINUE TO MONITOR.
--- NOTE | 2021-03-12 14:45 | NUR ---
DC PLANN[age] YRS OLD FEMALE PATIENT WAS ADMITTED FROM [facility] WITH A DX OF ALOC. PATIENT HAS A HX OF DEVELOPMENTAL DELAY AND SEIZURE DISORDER. CXR SHOWED NO ACUTE CARDIOPULMONARY DISEASE. CT HEAD AND CT ABD NEGATIVE. AMMONIA LEVEL 146, ADMINISTERED LACTULOSE AND CONTINUED HOME MEDS. CONSULTED WITH GI AND CARGO SERVICES COORDINATOR DUE TO HYPONATREMIA. DC PLAN TO GO BACK TO [facility] WHEN STABLE CM TO FOLLOW. Addendum: 03/13/21 at 1508 by Elizabet Rocha RN DC PLANNING: RECEIVED A CALL FROM [facility] DISCUSSED THE CONCERN AND ISSUES AND REQUESTING SINCE THE PLACE HAS NON MEDICAL STAFF AND FREQUENT ADMISSION, REQUESTING THE PATIENT TO GO TO SNF. STATED ANY SNF THAT MD CAN FOLLOW UP WILL BE OK. FAXED TO [facility], [facility], AND [facility]. CM TO FOLLOW Addendum: 03/13/21 at 1654 by Elizabet Rocha RN DC PLANNING: [facility] ACCEPTED PATIENT CAN GO TO ROOM 103A # TO GIVE REPORT [phone]. TRANSPORT ARRANGED BY [facility], CRAPS MANAGER TIME 5:45 PM PHONE NUMBER [phone] NOTIFIED PRESTON CHARGE NURSE. CM TO FOLLOW
--- NOTE | 2021-03-12 15:15 | NUR ---
CHECKED ON PATIENT. PATIENT IS STABLE. NO DISTRESS NOTED. WILL CONTINUE TO MONITOR.
[2021-03-12 16:00] VITALS: BP 108/69
--- NOTE | 2021-03-12 18:15 | NUR ---
PATIENT IS STABLE AND EATING DINNER. NO DISTRESS NOTED. WILL CONTINUE TO MONITOR.
--- NOTE | 2021-03-12 19:19 | NUR ---
ENDORSED TO SUPERVISOR PORCELAIN DEPARTMENT NURSE FOR CONTINUITY OF CARE. PT IS STABLE.
--- NOTE | 2021-03-12 19:30 | NUR ---
RECEIVED BEDSIDE REPORT FROM DAY SHIFT NURSE. PATIENT IS AWAKE RESPIRATION EVEN UNLABORED ON ROOM AIR. NO DISTRESS NOTED. SKIN IS WARM AND DRY. IV PATENT AND INTACT. PLAN OF CARE WAS DISCUSSED. ALL SAFETY MEASURES IN PLACE. BED IS AT LOW POSITION. CALL LIGHT WITHIN REACH. WILL CONTINUE TO MONITOR.
[2021-03-12 20:00] VITALS: BP 105/69
[2021-03-12] MEDS: SIMVASTATIN 20 MG TAB PO SCH (20:43)
--- NOTE | 2021-03-12 20:45 | NUR ---
ALL SCHEDULED MEDS WERE GIVEN PER ORDER, WILL CONTINUE TO MONITOR
--- NOTE | 2021-03-12 21:00 | NUR ---
PATIENT IS HUNGRY PROVIDE FOOD
[2021-03-13] VITALS: BP 132/69
--- NOTE | 2021-03-13 02:01 | NUR ---
CHECKED ON PATIENT, PATIENT SLEEPING RESPIRATION EVEN UNLABORED ON ROOM AIR. NO DISTRESS NOTED. WILL CONTINUE TO MONITOR
--- NOTE | 2021-03-13 03:45 | NUR ---
CHECKED ON PATIENT, PATIENT SLEEPING RESPIRATION EVEN UNLABORED ON ROOM AIR. NO DISTRESS NOTED. WILL CONTINUE TO MONITOR
[2021-03-13 04:00] VITALS: BP 117/64
[2021-03-13] MEDS: LEVOTHYROXINE 0.025 MG TAB PO SCH (05:50)
[2021-03-13 06:53] LABS: ALBUMIN 3.3 g/dL (3.4-5.0); ANION GAP 9.7 (8-16); CARBON DIOXIDE 30.9 mmol/L (21-32); CREATININE 0.8 mg/dL (0.6-1.3); MAGNESIUM 2.3 mg/dL (1.8-2.4); POTASSIUM 3.6 mmol/L (3.5-5.1); TOTAL BILIRUBIN 0.8 mg/dL (0.0-1.0)
--- NOTE | 2021-03-13 07:24 | NUR ---
ENDORSED PATIENT TO DAY SHIFT NURSE FOR CONTINUITY OF CARE
--- NOTE | 2021-03-13 07:26 | NUR ---
RECEIVED BEDSIDE REPORT FROM LOCOMOTIVE ELECTRICIAN NURSE. PATIENT IS AWAKE RESPIRATION EVEN UNLABORED ON ROOM AIR. NO DISTRESS NOTED. SKIN IS WARM AND DRY. IV PATENT AND INTACT. PLAN OF CARE WAS DISCUSSED. ALL SAFETY MEASURES IN PLACE. BED IS AT LOW POSITION. CALL LIGHT WITHIN REACH. WILL CONTINUE TO MONITOR.
[2021-03-13 08:00] VITALS: BP 102/45
[2021-03-13] MEDS: FENOFIBRATE 48 MG TAB PO SCH (08:50)
[2021-03-13] MEDS: LACTULOSE 20 GM/30 ML UDC PO SCH (08:50)
[2021-03-13] MEDS: MULTIVITAMIN/MINERALS 1 TAB PO SCH (08:52)
[2021-03-13] MEDS: ARIPiprazole 10 MG TAB PO SCH (08:52)
[2021-03-13] MEDS: DIVALPROEX 500 MG TABEC PO SCH (08:52)
[2021-03-13] MEDS: BENZTROPINE 1 MG TAB PO SCH (08:53)
[2021-03-13] MEDS ORDERED: FUROSEMIDE 20 MG TAB PO SCH ×2 (09:00→10:00)
--- NOTE | 2021-03-13 09:30 | NUR ---
ALL SCHEDULED MEDS GIVEN. PT IS STABLE. NO DISTRESS NOTED. WILL CONTINUE TO MONITOR.
[2021-03-13] MEDS ORDERED: LACT-103 PO (10:37)
--- NOTE | 2021-03-13 11:42 | NUR ---
PATIENT REFUSED CBC BLOOD DRAWN. NOTIFIED MD AND IS AWARE OF THE SITUATION.
[2021-03-13 12:00] VITALS: BP 102/62
[2021-03-13 13:07] VITALS: BP 102/62
--- NOTE | 2021-03-13 13:30 | NUR ---
CHECKED ON PATIENT. PT IS STABLE. NO DISTRESS NOTED. WILL CONTINUE TO MONITOR.
--- NOTE | 2021-03-13 15:00 | NUR ---
RAPID COVID TEST COLLECTED. AWAITING FOR RESULTS
--- NOTE | 2021-03-13 17:45 | NUR ---
ENDORSED PT TO VALERIE NURSE AT [facility] PATIENT IS BEING TRANSFERRED TO. DR MAIRA MCKEON IS THE MD ON SITE. PT WILL BE IN ROOM 103A. [facility] PICKED UP PT AT THE SAME TIME TO TRANSPORT HER TO [facility]. PT WAS AOX2 AND IN STABLE CONDITION. RIGHT AC 20G WAS DC AND WAS INTACT. SKIN INTACT. REPORT OF THE RECENT LABS, NEW MEDICATIONS, AND FOLLOW UP LABS AND MD ORDERS WERE ENDORSED TO VALERIE. DC TO TRANSFER TO [facility] IS COMPLETE.
== END 2021-03-13 17:50 | DRG 442 ==
LOC: MED 11:01 → MTU 14:12
PROVIDERS: ADMIT Family Medicine; ATTEND Family Medicine
DX: K72.90 Hepatic failure, unspecified without coma (principal); E22.2 Syndrome of inappropriate secretion of antidiuretic hormone; E87.8 Other disorders of electrolyte and fluid balance, not elsewhere classified; G40.909 Epilepsy, unspecified, not intractable, without status epilepticus; D63.8 Anemia in other chronic diseases classified elsewhere; K59.00 Constipation, unspecified; Z20.822 Contact with and (suspected) exposure to COVID-19
CPT/HCPCS: 36415; 70450; 71045; 80053; 80305; 81003; 81025; 82140; 82150; 83036; 83690; 83735; 83880; 83935; 84100; 84300; 84439; 84443; 84484; 85025; 85610; 85730; 87081; 93005; 96360; 97163-GP; 99291; G0480; G0482; J3370; J7060; Q0092

== ENCOUNTER 2021-05-25 00:17 | Inpatient (IN) | payer OTHER ==
[~2021-05-25] VITALS: Ht 162.6 cm; Wt 72.6 kg
[~2021-05-25 00:17] MED LIST changes: +LACT-103 PO
--- NOTE | 2021-05-25 00:21 | NUR ---
PT MICHAEL CONNORS. TAKEN TO BED 11
[2021-05-25 00:36] VITALS: BP 106/70
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
--- NOTE | 2021-05-25 02:00 | NUR ---
ERMD AT BEDSIDE ASSESSING PT.
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
[2021-05-25] MEDS ORDERED: ONDANSETRON 4 MG/2 ML VIAL IVP ONE (02:05)
[2021-05-25] MEDS ORDERED: NACL 0.9% 250 ML IV ONE (02:05)
[2021-05-25] MEDS ORDERED: MORPHINE SULFATE 2 MG/ML SYR IVP ONE ×2 (02:05→04:30)
--- NOTE | 2021-05-25 02:07 | NUR ---
SPOKE TO PT CAREGIVER CHERYL KAPLAN WHO CALLED [facility]. PER CHERYL UNKNOWN TIMEPT FELL, CHERYL ARRIVED AT WORK AND PT WAS ALREADY ON FLOOR.
[2021-05-25 02:36] LABS: BASOPHILS % (AUTO) 0.2 % (0.0-2.0); EOSINOPHILS # (AUTO) 0.1 K/uL (0-0.4); EOSINOPHILS % (AUTO) 0.6 % (0.0-4.0); LYMPHOCYTES # (AUTO) 1.5 K/uL (2.5-16.5); LYMPHOCYTES % (AUTO) 17.5 % (20.5-51.1); MEAN CORPUSCULAR HEMOGLOBIN 33 pg (27-31); MEAN CORPUSCULAR HGB CONC 34 g/dL (33-37); MEAN CORPUSCULAR VOLUME 96.1 fL (80-94); MONOCYTES # (AUTO) 0.4 K/uL (0.8-1.0); MONOCYTES % (AUTO) 4.8 % (1.7-9.3); NEUTROPHILS # (AUTO) 6.5 K/uL (1.8-7.7); NEUTROPHILS % (AUTO) 76.9 % (42.2-75.2); PLATELET COUNT (AUTO) 281 K/uL (140-450); RED BLOOD CELL COUNT(AUTO) 3.02 MIL/uL (4.20-5.40); RED CELL DISTRIBUTION WIDTH 14.4 % (11.6-13.7); WHITE BLOOD COUNT (AUTO) 8.5 K/uL (4.8-10.8)
[2021-05-25 02:46] LABS: CARBON DIOXIDE 25.7 mmol/L (21-32); CREATININE 0.6 mg/dL (0.6-1.3); POTASSIUM 3.7 mmol/L (3.5-5.1)
--- NOTE | 2021-05-25 03:05 | NUR ---
X-Ray at bedside.
--- NOTE | 2021-05-25 03:05 | NUR ---
HOUSEKEEPING ROOM ATTENDANT AT BEDSIDE.
--- NOTE | 2021-05-25 04:21 | NUR ---
PT APPEARS TO BE RESTING IN SUPINE POSITION, HOB ELEVATED W X2 SIDERAILS UP FOR PT SAFETY. BED LOCKED INLOWEST POSITION. VSS. BREATHING EVEN AND UNLABORED. NAD NOTED, WILL CONTINUE TO MONITOR.
--- NOTE | 2021-05-25 04:50 | NUR ---
TRAN SAMPLE COLLECTED FROM PT NARES AND SENT TO LAB.
--- NOTE | 2021-05-25 04:59 | NUR ---
PT TAKEN TO CT
--- NOTE | 2021-05-25 05:00 | NUR ---
ACCOMPANIED PT TO CT VIA RKARINA.
--- NOTE | 2021-05-25 05:12 | NUR ---
PT RETURN FROM CT
--- NOTE | 2021-05-25 05:41 | NUR ---
PT REPORTS BEING HUNGRY. PER ERMD TO KEEP NPO UNTIL CT SCAN RESULTS.
--- NOTE | 2021-05-25 06:23 | NUR ---
PT APPEARS TO BE RESTING IN SUPINE POSITION W EYES CLOSED. HOB ELEVATED, BD LOCKD IN LOWEST POSITION W X2 SIDERAILS UP FOR PT SAFETY. VSS. BREATHING EVEN AND UNLABORED. NAD NOTED, WILL CONTINUE TO MONITOR.
--- NOTE | 2021-05-25 07:20 | NUR ---
Pt report given to JOSE HDEZ. Transfer of care at this time.
[2021-05-25] MEDS ORDERED: MULT-465 PO (07:41)
[2021-05-25] MEDS ORDERED: ATA25 PO (07:41)
[2021-05-25] MEDS ORDERED: MAGN400S60 PO (07:41)
[2021-05-25] MEDS ORDERED: ACET-10509 PO (07:41)
[2021-05-25] MEDS ORDERED: PRED5TAB7 PO (07:41)
[2021-05-25] MEDS ORDERED: NEOM1OIN15 TP (07:41)
[2021-05-25] MEDS ORDERED: OSC500 PO (07:41)
--- NOTE | 2021-05-25 08:30 | NUR ---
RECEIVED PT IN [facility] ALERT ORIENTED, HX OF DEVELOPMENTAL DELAY PT IS AT BASELINE. HERE FOR LEFT SIDED PELVIC FX. DENIES ANY PAIN AT THIS TIME. SAFETY MAINTAINED. NAD.
[2021-05-25] MEDS ORDERED: guaiFENesin DM 200/20 MG-10 ML 10 ML UDC PO PRN ×2 (08:40→15:20)
[2021-05-25] MEDS ORDERED: DOCUSATE SODIUM 100 MG GELCAP PO PRN ×2 (08:40→15:20)
[2021-05-25] MEDS ORDERED: ACETAMINOPHEN 325 MG TAB PO PRN ×2 (08:40→15:20)
[2021-05-25] MEDS ORDERED: ZOLPIDEM 5 MG TAB PO PRN ×2 (08:40→15:20)
[2021-05-25] MEDS ORDERED: DEXT 5% /NACL 0.9% 1,000 ML IV SCH (08:40)
[2021-05-25] MEDS ORDERED: POTASSIUM CHLORIDE 10 MEQ TABER PO PRN ×2 (08:40→15:20)
[2021-05-25] MEDS ORDERED: ONDANSETRON 4 MG/2 ML VIAL IM/IVP PRN (08:40)
[2021-05-25] MEDS ORDERED: HYDROcodone/APAP 7.5/325 MG 1 TAB PO PRN (08:40)
[2021-05-25] MEDS ORDERED: PANTOPRAZOLE 40 MG TABEC PO SCH (09:00)
--- NOTE | 2021-05-25 09:00 | NUR ---
f/c placed using sterile technique. tolerated well. nad
[2021-05-25 09:31] LABS: PROTHROMBIN TIME 10.4 secs (10.8-13.4)
[2021-05-25 09:45] LABS: FREE T4 (FREE THYROXINE) 0.57 ng/dL (0.76-1.46); MAGNESIUM 1.9 mg/dL (1.8-2.4); PHOSPHORUS 3.2 mg/dL (2.5-4.9); THYROID STIMULATING HORMONE 2.56 uIU/mL (0.34-3.74)
[2021-05-25 10:03] LABS: CHOL/HDL RATIO 1.9 (1-4.5)
[2021-05-25 10:38] LABS: APPEARANCE,URINE CLEAR (CLEAR); BILIRUBIN,URINE NEGATIVE (NEGATIVE); BLOOD, URINE NEGATIVE (NEGATIVE); COLOR,URINE YELLOW (YELLOW); LEUKOCYTE ESTERASE ,URINE NEGATIVE (NEGATIVE); NITRITE, URINE NEGATIVE (NEGATIVE); PH,URINE 6.5 (5.0-9.0); UGLUCOSE NEGATIVE (NEGATIVE)
[2021-05-25 10:40] LABS: BARBITURATE, URINE NEGATIVE ng/ml (NEG <=200); BENZODIAZEPINE, URINE NEGATIVE ng/mL (NEG <=200); CANNABINOID, URINE NEGATIVE ng/mL (NEG <=50); COCAINE, URINE NEGATIVE ng/mL (NEG <=300); OPIATE, URINE POSITIVE ng/mL (NEG <=2000); PHENCYCLIDINE SCREEN,URINE NEGATIVE ng/mL (NEG <=25)
--- NOTE | 2021-05-25 12:00 | NUR ---
pt asleep no s/s pain or discomfort. remains npo. no changes noted
--- NOTE | 2021-05-25 15:00 | NUR ---
received diet order from admiting md. pt incontinent of stool, cleaned and repositioned.
[2021-05-25] MEDS ORDERED: DEXT 5% /NACL 0.9% 1,000 ML IV ONE (15:30)
[2021-05-25] MEDS: HYDROcodone/APAP 7.5/325 MG 1 TAB PO PRN (15:48)
--- NOTE | 2021-05-25 18:12 | NUR ---
pt asleep no changes noted. pending inpt bed
--- NOTE | 2021-05-25 19:17 | NUR ---
REPORT RECEIVED FROM JOSE CERVANTES FOR CONTINUITY OF PT CARE AT THIS TIME.
--- NOTE | 2021-05-25 19:35 | NUR ---
PT APPEARS TO BE RESTING W EYES CLOSED IN SUPINE POSITION. BED LOCKED IN LOWEST POSITION W X2 SIDERAILS UP FOR PT SAFETY, HOB SLIGHTLY ELEVATED. CONNECTED TO MONITOR W VSS. BREATHING EVEN AND UNLABORED. NAD NOTED, WILL CONTINUE TO MONITOR.
--- NOTE | 2021-05-25 21:21 | NUR ---
PT AWAKE EATING DINNER TRAY, REPORTS FEELING FINE, NO PAIN ONLY UPON MOVEMENT.
--- NOTE | 2021-05-25 23:45 | NUR ---
PROVIDED PT W PERNIEAL CARE, PT BM LOOSE STOOLS, JELLY LIKE, STRONG SMELLING. SMAPLE COLLECTED AND SENT TO LAB.
--- NOTE | 2021-05-26 03:53 | NUR ---
PT C/O OF "ALOT OF LEG PAIN." PT MEDICATED FOR PAIN.
[2021-05-26] MEDS: HYDROcodone/APAP 7.5/325 MG 1 TAB PO PRN ×3 (03:54→18:45)
--- NOTE | 2021-05-26 07:22 | NUR ---
Pt report given to JOSE ROBBINS. Transfer of care at this time.
--- NOTE | 2021-05-26 07:30 | NUR ---
RECEIVED REPORT FROM JOSE BORDEN. ASSUMED CARE AT THIS TIME.
--- NOTE | 2021-05-26 08:30 | NUR ---
PATIENT PROVIDED WITH BREAKFAST TRAY, ASSISTED UP IN BED. PATIENT SITTING UP IN BED EATING BREAKFAST. ALL NEEDS MET AT THIS TIME.
[2021-05-26] MEDS: PANTOPRAZOLE 40 MG TABEC PO SCH (10:48)
--- NOTE | 2021-05-26 11:30 | NUR ---
PATIENT SITTING UP IN BED AWAKE PLAYING WITH HER STUFFED ANIMAL. PATIENT ON BEDSIDE LAND EXAMINER, WILL CONTINUE TO MONITOR.
--- NOTE | 2021-05-26 12:33 | NUR ---
PATIENT PROVIDED WITH LUNCH TRAY, SITTING UP IN BED EATING. ALL NEEDS MET AT THIS TIME.
--- NOTE | 2021-05-26 13:02 | NUR ---
PATIENT C/O 10/10 PAIN, MEDICATED WITH PRN NORCO ORDERED.
--- NOTE | 2021-05-26 16:07 | NUR ---
1400CC DARK URINE EMPTIED FROM CHAU BAG
--- NOTE | 2021-05-26 18:44 | NUR ---
PATIENT C/O 10/10 PAIN, MEDICATED WITH PRN NORCO ORDERED.
--- NOTE | 2021-05-26 18:50 | NUR ---
PATIENT PROVIDED WITH DINNER TRAY, PATIENT SITTING UP IN BED EATING. ALL NEEDS MET AT THIS TIME.
--- NOTE | 2021-05-26 19:21 | NUR ---
Pt report given to JOSE COOPER. Transfer of care at this time.
--- NOTE | 2021-05-26 19:21 | NUR ---
Received report from Cynthia GARCIA for continuity of care.
--- NOTE | 2021-05-26 19:27 | NUR ---
Patient appears to be resting comfortably in bed- awake and finished food. Vital Signs within normal limits. No signs of distress noted. patient does c/o pain in the pelvic region but received norco less than 30 minutes ago. no fluids running in IV but 10cc is flushable through. Safety measures are in place, attached to the monitor and will continue to monitor patient.
--- NOTE | 2021-05-26 20:16 | NUR ---
called for report-- will call back in 5 minutes as nurse is providing patient care
--- NOTE | 2021-05-26 20:35 | NUR ---
Patient will be admitted to care of Shakira TRAORE. Admited to Telemetry. Will go to room 111B. Belongings list completed. Report to Nafisa GARCIA.
--- NOTE | 2021-05-26 20:44 | NUR ---
patient tx to floor via rjovanna
[2021-05-26 21:10] VITALS: BP 113/71
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
[2021-05-26 22:03] LABS: T4 (THYROXINE) 3.9 ug/dL (4.5 - 12.0)
--- NOTE | 2021-05-26 23:30 | NUR ---
SLEEPING COMFORTABLY IN BED, RESPIRATION EVEN AND UNLABORED. CALL LIGHT IN REACH.
--- NOTE | 2021-05-27 02:30 | NUR ---
ON HER RIGHT SIDE COMFORTABLY SLEEPING, RESPIRATION EVEN AND UNLABORED. SAFETY MAINTAINED.
--- NOTE | 2021-05-27 03:08 | NUR ---
Patient's Plan of Care was discussed and reviewed with SERVICE DESK ASSOCIATE: SWATHI MURDOCK
[2021-05-27 04:00] VITALS: BP 118/69
--- NOTE | 2021-05-27 04:30 | NUR ---
WARM BLANKETS GIVEN. CONTINUED SLEEPING IN BED. NO APPEARANCE OF PAIN NOTED.
[2021-05-27] MEDS: HYDROcodone/APAP 7.5/325 MG 1 TAB PO PRN ×2 (05:18→17:39)
--- NOTE | 2021-05-27 06:00 | NUR ---
HAD A LARGE LOOSE BM. CLEANSED AND MADE COMFORTABLE IN BE WITH PILLOWS.
--- NOTE | 2021-05-27 06:50 | NUR ---
CONDITION REMAIN STABLE. ABLE TO SLEEP WELL. WILL ENDORSED TO AM SHIFT NURSE FOR CONTINUITY OF CARE.
[2021-05-27 07:05] LABS: BASOPHILS % (AUTO) 0.1 % (0.0-2.0); EOSINOPHILS # (AUTO) 0.1 K/uL (0-0.4); EOSINOPHILS % (AUTO) 0.8 % (0.0-4.0); HEMATOCRIT 30.3 % (36-48); HEMOGLOBIN 10.5 g/dL (12.0-16.0); LYMPHOCYTES % (AUTO) 14.3 % (20.5-51.1); MEAN CORPUSCULAR HEMOGLOBIN 33 pg (27-31); MEAN CORPUSCULAR HGB CONC 35 g/dL (33-37); MEAN CORPUSCULAR VOLUME 95.9 fL (80-94); MONOCYTES # (AUTO) 0.4 K/uL (0.8-1.0); MONOCYTES % (AUTO) 4.9 % (1.7-9.3); NEUTROPHILS # (AUTO) 5.7 K/uL (1.8-7.7); NEUTROPHILS % (AUTO) 79.9 % (42.2-75.2); PLATELET COUNT (AUTO) 308 K/uL (140-450); RED BLOOD CELL COUNT(AUTO) 3.17 MIL/uL (4.20-5.40); RED CELL DISTRIBUTION WIDTH 14.4 % (11.6-13.7); WHITE BLOOD COUNT (AUTO) 7.2 K/uL (4.8-10.8)
[2021-05-27 07:18] LABS: ANION GAP 11.5 (8-16); CARBON DIOXIDE 28.8 mmol/L (21-32); CREATININE 0.6 mg/dL (0.6-1.3); POTASSIUM 4.3 mmol/L (3.5-5.1)
[2021-05-27 08:00] VITALS: BP 110/68
[2021-05-27] MEDS: PANTOPRAZOLE 40 MG TABEC PO SCH (08:33)
[2021-05-27] MEDS ORDERED: QUET100T PO (08:33)
--- NOTE | 2021-05-27 08:50 | NUR ---
SCHEDULED MEDICATIONS DUE GIVEN. WILL CONTINUE TO MONITOR.
[2021-05-27] MEDS: BENZTROPINE 1 MG TAB PO SCH ×2 (13:34→21:33)
[2021-05-27] MEDS: DIVALPROEX 500 MG TABEC PO SCH ×2 (13:34→21:32)
--- NOTE | 2021-05-27 13:40 | NUR ---
SCHEDULED DUE MEDICATION GIVEN PER MD ORDER, WILL CONTINUE TO MONITOR
--- NOTE | 2021-05-27 14:31 | NUR ---
PATIENT HAS BEEN SCREENED AND CATEGORIZED LOW NUTRITION RISK. PATIENT WILL BE SEEN WITHIN 7 DAYS OF ADMISSION. 05/31/[address]
[2021-05-27 16:00] VITALS: BP 103/62
--- NOTE | 2021-05-27 16:50 | NUR ---
PT IN BED, AWAKE. BREATHING EVEN AND UNLABORED. NO DISTRESS NOTED AT THIS TIME. ALL SAFETY MEASURES IN PLACE. WILL CONTINUE TO MONITOR.
--- NOTE | 2021-05-27 18:55 | NUR ---
NOTIFIED DR ANTON OF [facility]TH[facility] CONSULT ORDER AND SAID HE'S NOT GOING TO DO SURGERY. DIET CHANGED TO REGULAR PER MD ORDER. PT IN BED, BREATHING EVEN AND UNLABORED. DENIES PAIN AT THIS TIME. ALL SAFETY MEASURES IN PLACE. CALL LIGHT WITHIN REACH
--- NOTE | 2021-05-27 19:40 | NUR ---
GAVE REPORT TO DRAFTER PLUMBING NURSE FOR CONTINUITY OF CARE. PATIENT IN STABLE CONDITION.
[2021-05-27] MEDS ORDERED: ARIPIPRAZOLE 15 MG PO SCH (21:00)
[2021-05-27] MEDS ORDERED: SIMVASTATIN 20 MG TAB PO SCH (21:00)
[2021-05-27] MEDS: QUEtiapine FUMARATE 100 MG TAB PO SCH (21:34)
[2021-05-27] MEDS: ARIPiprazole 10 MG TAB PO SCH (21:34)
[2021-05-28] VITALS: BP 115/69
[2021-05-28] MEDS ORDERED: LEVOTHYROXINE 0.05 MG TAB PO SCH (06:30)
--- NOTE | 2021-05-28 07:05 | NUR ---
RECEIVED REPORT FROM FORKLIFT MATERIAL HANDLER NURSE FOR CONTINUITY OF CARE. PT IS IN BED AT THIS TIME, SLEEPING. RESPIRATIONS ARE EVEN AND UNLABORED. NO SIGNS OF DISTRESS NOTED. NO COMPLAINTS OF PAIN OR DISCOMFORT NOTED. CALL LIGHT WITHIN REACH. ALL SAFETY MEASURES IN PLACE. WILL CONTINUE TO MONITOR.
[2021-05-28 07:17] LABS: BASOPHILS % (AUTO) 0.2 % (0.0-2.0); EOSINOPHILS % (AUTO) 0.9 % (0.0-4.0); HEMATOCRIT 31.9 % (36-48); HEMOGLOBIN 10.8 g/dL (12.0-16.0); LYMPHOCYTES # (AUTO) 1.5 K/uL (2.5-16.5); LYMPHOCYTES % (AUTO) 29.6 % (20.5-51.1); MEAN CORPUSCULAR HEMOGLOBIN 32 pg (27-31); MEAN CORPUSCULAR HGB CONC 34 g/dL (33-37); MEAN CORPUSCULAR VOLUME 95.7 fL (80-94); MONOCYTES # (AUTO) 0.3 K/uL (0.8-1.0); MONOCYTES % (AUTO) 5.3 % (1.7-9.3); NEUTROPHILS # (AUTO) 3.3 K/uL (1.8-7.7); PLATELET COUNT (AUTO) 300 K/uL (140-450); RED BLOOD CELL COUNT(AUTO) 3.33 MIL/uL (4.20-5.40); RED CELL DISTRIBUTION WIDTH 14.3 % (11.6-13.7); WHITE BLOOD COUNT (AUTO) 5.2 K/uL (4.8-10.8)
[2021-05-28 07:29] LABS: ANION GAP 13.6 (8-16); CARBON DIOXIDE 26.2 mmol/L (21-32); CREATININE 0.6 mg/dL (0.6-1.3); POTASSIUM 3.8 mmol/L (3.5-5.1)
[2021-05-28 08:00] VITALS: BP 105/70
[2021-05-28] MEDS ORDERED: PANTOPRAZOLE 40 MG TABEC PO SCH (09:00)
[2021-05-28] MEDS ORDERED: CALCIUM CARBONATE 500 MG TAB PO SCH (09:00)
[2021-05-28] MEDS ORDERED: predniSONE 5 MG TAB PO SCH (09:00)
[2021-05-28] MEDS ORDERED: SODIUM CHLORIDE 1 GM TAB PO SCH (09:00)
[2021-05-28] MEDS ORDERED: HYDROXYZINE HYDROCHLORIDE 25 MG TAB PO SCH (09:00)
[2021-05-28] MEDS: BENZTROPINE 1 MG TAB PO SCH (09:15)
[2021-05-28] MEDS: ARIPiprazole 10 MG TAB PO SCH (09:15)
[2021-05-28] MEDS: QUEtiapine FUMARATE 100 MG TAB PO SCH (09:17)
[2021-05-28] MEDS: DIVALPROEX 500 MG TABEC PO SCH (09:18)
[2021-05-28] MEDS: PANTOPRAZOLE 40 MG TABEC PO SCH (09:18)
--- NOTE | 2021-05-28 09:24 | NUR ---
ADMINISTERED ALL SCHEDULED MEDICATIONS. EDUCATED PT ON MEDS ADMINISTERED. ASSISTED PT TO SIT UP AND EAT BREAKFAST. PT TOLERATED WELL. WILL CONTINUE TO MONITOR.
[2021-05-28] MEDS ORDERED: ABI10 PO (10:48)
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
--- NOTE | 2021-05-28 11:35 | NUR ---
DID ROUNDS ON PT. PT IN BED RESTING AT THIS TIME. RESPIRATIONS ARE EVEN AND UNLABORED. NO SIGNS OF DISTRESS NOTED. WILL CONTINUE TO MONITOR.
--- NOTE | 2021-05-28 13:18 | NUR ---
CALLED PAULA ARDON TO GIVE REPORT. SPOKE TO DARA. ANSWERED ALL QUESTIONS. DISCHARGE PAPERWORK DONE. PT IS SUPPOSED TO BE PICKED UP BETWEEN 1400 AND 1430. WILL CONTINUE TO MONITOR.
[2021-05-28] MEDS: HYDROcodone/APAP 7.5/325 MG 1 TAB PO PRN (13:55)
--- NOTE | 2021-05-28 15:20 | NUR ---
DID ROUNDS ON PT. PT IS IN BED SLEEPING AT THIS TIME. RESPIRATIONS ARE EVEN AND UNLABORED. NO SIGNS OF DISTRESS NOTED. STILL AWAITING TRANSPORT TO FIG BAR MACHINE OPERATOR PT. CALL LIGHT WITHIN REACH. ALL SAFETY MEASURES IN PLACE. WILL CONTINUE TO MONITOR.
--- NOTE | 2021-05-28 15:37 | NUR ---
PER CONCRETE MASON, TRANSPORT IS RUNNING LATE. NEW MORTAR MIXER OPERATOR TIME IS BETWEEN [phone]. PT MADE AWARE. WILL CONTINUE TO MONITOR.
--- NOTE | 2021-05-28 17:27 | NUR ---
PT DISCHARGED TO [facility]. IV CATHETER REMOVED, IV CATHETER IN TACT. WRIST BAND REMOVED. ALL BELONGINGS TAKEN UPON DISCHARGE. PT WAS PICKED UP BY [facility], ACCOMPANIED BY 2 TRANSPORT STAFF. PICKED UP VIA [facility].
== END 2021-05-28 17:57 | DRG 536 ==
LOC: MED 00:17 → UNDOADMIN 08:04 → MED 08:04 → MTU 08:04 → UNDOADMIN 05-26 16:35 → MTU 05-26 16:35 → MED 05-26 18:45 → MTU 05-27 12:21 → MMU 05-27 12:37
PROVIDERS: ADMIT Family Medicine; ATTEND Family Medicine
DX: S32.592A Other specified fracture of left pubis, initial encounter for closed fracture (principal); F79 Unspecified intellectual disabilities; E86.0 Dehydration; D63.8 Anemia in other chronic diseases classified elsewhere; E03.9 Hypothyroidism, unspecified; E78.5 Hyperlipidemia, unspecified; F03.90 Unspecified dementia, unspecified severity, without behavioral disturbance, psychotic disturbance, mood disturbance, and anxiety; G40.909 Epilepsy, unspecified, not intractable, without status epilepticus; W18.39XA Other fall on same level, initial encounter; Z20.822 Contact with and (suspected) exposure to COVID-19; K21.9 Gastro-esophageal reflux disease without esophagitis; Y93.89 Activity, other specified; Y92.89 Other specified places as the place of occurrence of the external cause; Y99.8 Other external cause status
CPT/HCPCS: 36415; 71045; 72170; 72192; 73502; 80048; 80305; 81003; 82150; 83036; 83690; 83735; 83880; 84100; 84436; 84439; 84443; 84479; 84484; 85025; 85610; 85730; 87081; 93005; 97163-GP; 97530; J2270; J2405; J7030; J7042; J7512; Q0092